=== PATIENT | male | born 1980 | race Caucasian/White ===

== ENCOUNTER 2022-01-26 12:27 | Emergency (ER) | payer BC, SELFPAY ==
[2022-01-26 12:37] VITALS: BP 132/83; PULSE 77; RESP 18; TEMP 36.6; O2SAT 100
--- NOTE | 2022-01-26 12:48 | ED.URI ---
HPI - URI/Sore Throat General Chief Complaint: Upper Respiratory Infection Stated Complaint: Cough Time Seen by Provider: 01/26/22 12:48 Source: patient, RN notes reviewed and old records reviewed Mode of arrival: ambulatory Limitations: no limitations History of Present Illness HPI Narrative: 41-year-old male presents to the [facility] with complaints of a cough and body aches since last night. No treatment prior to arrival. Patient states that he had to call off of work. Related Data Home Medications Medication Instructions Recorded Confirmed trazodone 50 mg tablet 50 mg PO .hs 07/04/19 01/26/22 carbamazepine 300 mg 300 mg PO Q12H 07/05/19 01/26/22 capsule,extended release [id number] dextroamphetamine-amphetamine ER 5 20 mg PO DAILY 12/10/21 01/26/22 mg 24hr capsule,extend release (Adderall XR) sertraline 25 mg tablet 50 mg PO DAILY 12/10/21 01/26/22 Allergies Allergy/AdvReac Type Severity Reaction Status Date / Time Sulfa (Sulfonamide Allergy Intermediate Hives, Verified 01/26/22 12:52 Antibiotics) joint swelling Review of Systems Review of Systems: All systems reviewed & are unremarkable except as noted in HPI and below Constitutional: Constitutional: Reports no additional constitutional complaints Eyes: Eyes: Reports no additional eye complaints ENT: Reports system reviewed and no additional complaints, except as documented Cardiovascular: Cardiovascular: Reports no additional cardiovascular complaints, Denies chest pain and Denies dyspnea Respiratory: Respiratory: Reports as per HPI, Denies chest congestion, Reports cough and Denies dyspnea Gastrointestinal: Gastrointestinal: Reports no additional gastrointestinal complaints, Denies abdominal pain, Denies nausea and Denies vomiting Musculoskeletal: Musculoskeletal: Reports no additional musculoskeletal complaints Integumentary/Breasts: Skin/Breast: Reports system reviewed and no additional complaints, except as docu Neurologic: Reports system reviewed and no additional complaints, except as documented Psychiatric: Psychiatric: Reports no additional psychiatric complaints Allergic/Immunologic: Allergic/Immunologic: Reports no additional allergic/immunologic complaints [facility] Family History Family History Other Family history of Parkinson's disease Family history of malignant neoplasm Social History Social History Smoking status: Never smoker Second hand tobacco smoke exposure: Yes Alcohol intake: current Alcohol use details: occasional Substance use: never Lack of Transportation: No Lack of Food: Never True Current Housing: I Have Housing Concerned About Future Housing: No Difficulty Paying Gas/Electric Bills: No Difficulty Paying for Meds: No Currently Unemployed: No Education: High School Diploma/GED Difficulty w/ Childcare or Family Care: No Comments At the time of my signature, I reviewed and agree with the nursing past medical, surgical, social, and family history. There is no relevant family history pertinent to the patient complaint. Exam Const: General: cooperative, healthy appearing, comfortable, no acute distress, well developed, alert and well nourished Nutritional Appearance: well nourished Orientation/consciousness: patient oriented x3 Limitations: no limitations HENMT: Head: normal to inspection Ears: hearing grossly normal bilaterally and external ears normal Face/Nose/Sinus: Normal external nose present, Normal nares present, Normal nasal mucous membranes and turbinates present and normal facial exam Face and sinus: normal facial exam Mouth: Yes Normal oral and palatal mucosa present, Yes lip normal and Yes moist mucous membranes Throat: posterior oropharynx normal and uvula midline Eyes: General: appearance normal, both eyes and all related structures Alignment and
== END 2022-01-26 13:09 | disposition home or self-care (01) ==
PROVIDERS: Emergency Provider Nurse Practitioner; PCP Internal Medicine
DX: J06.9 Acute upper respiratory infection, unspecified (principal)
CPT/HCPCS: 99213; G0463

== ENCOUNTER 2022-03-14 14:54 | Emergency (ER) | payer BC, SELFPAY ==
--- NOTE | ~2022-03-14 | CT_ITS ---
EXAMINATION: CTA chest PE protocol DATE: 03/14/2022 17:45 INDICATION: Chest pain. Shortness of breath. TECHNIQUE: Computed tomography angiography (CTA) of the chest was performed with 100 mL Omnipaque-350 intravenous contrast timed to evaluate the pulmonary arteries. Coronal maximum intensity projection 3D-reconstructions were created by the technologist. Automated exposure control and iterative reconst ruction technique were employed. The dose-length product was 402.26 mGy-cm. COMPARISON: Chest CT 08/30/2015 FINDINGS: The lungs demonstrate mild dependent atelectasis. No pleural effusion. The heart size is no rmal. No pericardial effusion. There is no pulmonary embolus. There is a hemangioma in T3 vertebral b mady. IMPRESSION: 1. No pulmonary embolus. Reviewed, dictated and finalized at location A. RETE PIPE MACHINE OPERATOR IMPRESSION: 1. No pulmonary embolus.
--- NOTE | ~2022-03-14 | XR_ITS ---
EXAMINATION: XR chest 2V DATE: 03/14/2022 15:22 INDICATION: Chest pain. TECHNIQUE: Frontal and lateral views of the chest were obtained. COMPARISON: Chest 2 views 02/11/2017 FINDINGS: The chest demonstrates clear lungs without pneumonia, pleural effusion, or pneumothorax. Th e heart size is normal. IMPRESSION: 1. No acute cardiopulmonary disease. Reviewed, dictated and finalized at location A. K PULLER
--- NOTE | 2022-03-14 14:56 | ECG_ITS ---
Measurements Intervals [place] Rate: 68 P: 53 [place]: 186 QRS: 41 QRSD: 93 T: 34 QT: 344 QTc: 367 Interpretive Statements SINUS RHYTHM POSSIBLE LEFT ATRIAL ENLARGEMENT BASELINE ARTIFACT- V3-V5 BORDERLINE ECG NO PREVIOUS ECG AVAILABLE FOR COMPARISON Electronically Signed On 03-14-2022 19:21:51 SUPPLY CHAIN ASSISTANT by Deni Cheng D.O.
[2022-03-14 15:02] VITALS: BP 144/89; PULSE 68; RESP 16; TEMP 36.4; O2SAT 100
[2022-03-14 16:37] LABS: Basophils Absolute Auto 0.1 K/mm3 (0.0-0.1); Basophils Percent Auto 1.6 % (0.2-1.2); Eosinophils Absolute Auto 0.1 K/mm3 (0-0.3); Eosinophils Percent Auto 1.1 % (0-4.4); Hematocrit 43.6 % (42.0-52.0); Hemoglobin 14.7 g/dL (14.0-18.0); Immature Granulocyte Absolute 0.01 K/mm3 (0.00-0.031); Immature Granulocyte Percent A 0.2 % (0-0.5); Lymphocytes Absolute Auto 1.18 K/mm3 (0.9-3.2); Lymphocytes Percent Auto 26.9 % (18.3-44.2); Mean Corpuscular HGB Conc 33.7 g/dl (32-36); Mean Corpuscular Hemoglobin 29.5 pg (26-34); Mean Corpuscular Volume 87.4 fl (80-100); Mean Platelet Volume 8.6 fl (7.4-10.4); Monocytes Absolute Auto 0.4 K/mm3 (0.1-0.6); Monocytes Percent Auto 8.4 % (2.6-8.5); Neutrophils Absolute Auto 2.7 K/mm3 (1.3-6.7); Neutrophils Percent Auto 61.8 % (45.5-73.1); Platelet Count Result 315 k/mm3 (150-375); Red Blood Count 4.99 M/mm3 (4.6-6.20); Red Cell Distribution Width 13.2 % (11.5-14.5); White Blood Count 4.4 K/mm3 (4.5-10.0)
[2022-03-14 16:47] LABS: Alanine Aminotransferase 22 U/L (6-50); Alkaline Phosphatase 85 U/L (38-126); Anion Gap 7 mmol/L (8-16); Aspartate Amino Transferase 28 U/L (17-59); Bilirubin,Total 0.5 mg/dL (0.2-1.3); Blood Urea Nitrogen 15 mg/dL (9-20); Calcium 9.1 mg/dL (8.4-10.2); Carbon Dioxide 28 mmol/L (22-30); Chloride 99 mmol/L (98-107); Estimated CRCL calculation 102 ml/min; Estimated Glomerular Filt Rate > 60; Glucose 86 mg/dL (65-110); INR 0.9; Lipase 214 U/L (23-300); Potassium 4.1 mmol/L (3.4-5.0); Prothrombin Time 12.2 Seconds (11.1-14.7); Sodium 134 mmol/L (137-145)
[2022-03-14 16:48] LABS: Partial Thromboplastin Time 27.4 SECONDS (22.3-36.8)
--- NOTE | 2022-03-14 16:54 | PC.NURSE ---
EKG and blood done @1500 and sent to lab at that time
[2022-03-14 16:59] LABS: Troponin I < 0.012 ng/mL (0.000-0.034)
[2022-03-14] MEDS: ASPIRIN 81 MG CHEWABLE TABLET 324 MG PO (17:06)
[2022-03-14] MEDS: NITROGLYCERIN SL 0.4 MG TABLET SUBLINGUAL (17:19)
--- NOTE | 2022-03-14 17:19 | ED.CHESTPAIN ---
HPI - Chest Pain General Chief Complaint: Chest Pain Stated Complaint: Chest Pain Time Seen by Provider: 03/14/22 16:56 History of Present Illness HPI narrative: 41-year-old male presenting to the emergency department for evaluation of chest pain that has been ongoing for the last few days. Patient reported to nursing it is worsened with a deep breath. Patient does have a history of COVID and bronchitis from January 2022. Patient denies any history of MD. Patient has not had a stress test. Patient reports he has had a prior history of pericarditis but states this feels differently. Patient denies any prior history of PE or DVT. Related Data Home Medications Medication Instructions Recorded Confirmed trazodone 50 mg tablet 50 mg PO .hs 07/04/19 02/06/22 carbamazepine 300 mg 300 mg PO Q12H 07/05/19 02/06/22 capsule,extended release [id number] dextroamphetamine-amphetamine ER 5 20 mg PO DAILY 12/10/21 02/06/22 mg 24hr capsule,extend release (Adderall XR) sertraline 25 mg tablet 50 mg PO DAILY 12/10/21 02/06/22 Allergies Allergy/AdvReac Type Severity Reaction Status Date / Time Sulfa (Sulfonamide Allergy Intermediate Hives, Verified 03/14/22 14:55 Antibiotics) joint swelling Review of Systems Review of Systems: CONSTITUTIONAL: Denies fever, chills, or sweats. EYES: Denies visual changes, redness, or discharge. ENT: Denies rhinorrhea, congestion, sore throat, or otalgia. CARDIOVASCULAR: See HPI RESPIRATORY: Denies cough or dyspnea. GASTROINTESTINAL: Denies abdominal pain, nausea, vomiting, or diarrhea. GENITOURINARY: Denies dysuria or hematuria. SKIN: Denies rash or itching. MUSCULOSKELETAL: Denies back pain, joint pain, or myalgia. NEUROLOGIC: Denies headache, numbness, or weakness. [facility] Family History Family History Other Family history of Parkinson's disease Family history of malignant neoplasm Social History Social History Smoking status: Never smoker Second hand tobacco smoke exposure: Yes Alcohol intake: current Alcohol use details: occasional Substance use: never Lack of Transportation: No Lack of Food: Never True Current Housing: I Have Housing Concerned About Future Housing: No Difficulty Paying Gas/Electric Bills: No Difficulty Paying for Meds: No Currently Unemployed: No Education: High School Diploma/GED Difficulty w/ Childcare or Family Care: No Exam Narrative: APPEARANCE: Well appearing, no pain, no distress, well-nourished. HEAD: normocephalic, atraumatic. EYES: PERRLA/EOMI, conjunctivae clear. NOSE: Normal no drainage NECK: Supple. No adenopathy, no masses. RESPIRATORY: Airway patent, respirations nonlabored. Clear to auscultation bilaterally, no rales, rhonchi, wheezing. CARDIOVASCULAR: Regular rate and rhythm without murmurs rubs or gallops. No reproducible chest wall tenderness to palpation ABDOMINAL: Soft, nontender, nondistended, normal bowel sounds MUSCULOSKELETAL: Moves all extremities. Strength/ROM intact, No edema, No calf tenderness. NEURO: Alert. Cranial nerves II through XII intact. Grossly intact SKIN: Warm, dry. Normal Color Course Course Emergency Course: Patient was treated with IV ketorolac. Patient had no improvement with his symptoms from sublingual nitro. Patient was treated with 324 mg p.o. aspirin. Patient was not tachycardic or hypoxic. Patient does describe pleuritic chest pain. Patient's EKG showed normal sinus rhythm. Patient's initial troponin was negative. With the way the patient is describing his pain and with his history of COVID CTA PE study will be ordered to rule out pulmonary embolism. CTA showed no evidence of pulm embolism. Patient had negative serial troponins. Vital Signs Vital signs: Vital Signs Temperature 97.5 F L 03/14/22 15:02 Pulse Rate 68 03/14/22 15:02 Respiratory R
[2022-03-14 18:39] LABS: Troponin I < 0.012 ng/mL (0.000-0.034)
--- NOTE | 2022-03-14 19:16 | PC.NURSE ---
Report received from DONALD Webster. Assumed care of patient at this time.
[2022-03-14 19:55] VITALS: BP 143/95; PULSE 68; RESP 16; O2SAT 100
[2022-03-14] MEDS: KETOROLAC 30 MG/ML VIAL (*BKC) IM (20:09)
== END 2022-03-14 20:13 | disposition home or self-care (01) ==
PROVIDERS: Emergency Provider Emergency Medicine; PCP Internal Medicine
DX: R07.9 Chest pain, unspecified (principal); Z86.16 Personal history of COVID-19; R94.31 Abnormal electrocardiogram [ECG] [EKG]
CPT/HCPCS: 36415; 71046; 71275; 80053; 83690; 84484; 85025; 85610; 85730; 93005; 96372; 99284; A9270; J1885; Q9967

== ENCOUNTER 2022-04-13 09:39 | Emergency (ER) | payer BC, SELFPAY ==
--- NOTE | ~2022-04-13 | XR_ITS ---
XR hand LT min 3V 04/13/2022 09:59 INDICATION: Left hand pain PROCEDURE: 3 views left hand COMPARISON: No prior studies for comparison. FINDINGS: Fracture, dislocation or subluxation is not identified. The soft tissues appear within norm al limits. No foreign bodies are identified. IMPRESSION: 1: NO ACUTE BONE OR JOINT ABNORMALITY IDENTIFIED. Reviewed, dictated and finalized at location B. TRUCTION IRONWORKER
--- NOTE | 2022-04-13 09:48 | ED.UPPEXIN ---
HPI - Extremity Injury (Upper) General Chief Complaint: Extremity Injury, Upper Stated Complaint: lt hand injury Time Seen by Provider: 04/13/22 09:48 Source: patient Mode of arrival: ambulatory Limitations: no limitations History of Present Illness HPI narrative: Mani is a 41-year-old male patient presenting to the clinic today with complaints of a left hand injury. He reports was moving some furniture around 8:00 a.m. this morning when he crushed his hand. States that 1 of the pieces of furniture crush his 3rd knuckle as well as he had a knife near by and it ended up cutting the top of his 3rd knuckle. Has pain to the left 3rd knuckle and radiating into his hand/wrist. Mild swelling noted with a a 1 cm laceration to the dorsal 3rd left knuckle Related Data Home Medications Medication Instructions Recorded Confirmed trazodone 50 mg tablet 50 mg PO .hs 07/04/19 02/06/22 carbamazepine 300 mg 300 mg PO Q12H 07/05/19 02/06/22 capsule,extended release [id number] dextroamphetamine-amphetamine ER 5 20 mg PO DAILY 12/10/21 02/06/22 mg 24hr capsule,extend release (Adderall XR) sertraline 25 mg tablet 50 mg PO DAILY 12/10/21 02/06/22 Allergies Allergy/AdvReac Type Severity Reaction Status Date / Time Sulfa (Sulfonamide Allergy Intermediate Hives, Verified 04/13/22 10:04 Antibiotics) joint swelling Review of Systems Review of Systems: Pertinent positives per HPI. Patient denies any fever, chills, rash, headache, visual changes, dizziness, cough, runny nose, sore throat, shortness of breath, chest pain, palpitations, nausea, vomiting, diarrhea, constipation, abdominal pain, or any urinary issues. [facility] Family History Family History Other Family history of Parkinson's disease Family history of malignant neoplasm Social History Social History Smoking status: Never smoker Second hand tobacco smoke exposure: Yes Alcohol intake: current Alcohol use details: occasional Substance use: never Lack of Transportation: No Lack of Food: Never True Current Housing: I Have Housing Concerned About Future Housing: No Difficulty Paying Gas/Electric Bills: No Difficulty Paying for Meds: No Currently Unemployed: No Education: High School Diploma/GED Difficulty w/ Childcare or Family Care: No Comments At the time of my signature, I reviewed and agree with the nursing past medical, surgical, social, and family history. There is no relevant family history pertinent to the patient complaint. Exam Narrative: General: Well-developed, well nourished, in no apparent distress Head: Normocephalic, atraumatic. Cardio: Regular rate and rhythm, s1 and s2 normal, no murmur appreciated. Resp: Clear to auscultation bilaterally, no rhonchi, rales, wheezing or rubs. Musculoskeletal: No deformity, mild swelling noted to the left 3rd knuckle with mild redness, 1 cm gaped laceration to the dorsal aspect of the left 3rd knuckle, tender to palpation over the left 3rd knuckle with pain radiating into the left hand, limited range of motion to the left 3rd finger due to the discomfort, muscle strength strong and equal, peripheral pulse strong, no cyanosis, normal gait and station Course Course Emergency Course: Portions of this record may have been created with voice recognition software. Level of Care: Express Care Visit Vital Signs Vital signs: Vital Signs Temperature 36.9 C 04/13/22 09:56 Pulse Rate 72 04/13/22 09:56 Respiratory Rate 18 04/13/22 09:56 Blood Pressure 133/98 H 04/13/22 09:56 Pulse Oximetry 100 04/13/22 09:56 Oxygen Delivery Room Air 04/13/22 09:56 Temperature 36.9 C 04/13/22 09:56 Pulse Rate 72 04/13/22 09:56 Respiratory Rate 18 04/13/22 09:56 Blood Pressure 133/98 H 04/13/22 09:56 Pulse Oximetry 100 04/13/22 09:56 Oxygen Deli
[2022-04-13 09:56] VITALS: BP 133/98; PULSE 72; RESP 18; TEMP 36.9; O2SAT 100
== END 2022-04-13 10:56 | disposition home or self-care (01) ==
PROVIDERS: Emergency Provider Nurse Practitioner Family; PCP Internal Medicine
DX: S61.213A Laceration without foreign body of left middle finger without damage to nail, initial encounter (principal); S69.92XA Unspecified injury of left wrist, hand and finger(s), initial encounter; W22.8XXA Striking against or struck by other objects, initial encounter
CPT/HCPCS: 12001; 73130; 99213; G0463

== ENCOUNTER 2022-05-09 17:53 | Emergency (ER) | payer BC, SELFPAY ==
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
[2022-05-09 18:08] VITALS: BP 145/95; PULSE 88; RESP 16; TEMP 37.3; O2SAT 100
--- NOTE | 2022-05-09 18:39 | ED.GENADULT ---
HPI - General Adult General Chief complaint: Extremity Injury, Upper Stated complaint: left hand pain Time Seen by Provider: 05/09/22 17:54 History of Present Illness HPI narrative: 41-year-old male with a history of hyperlipidemia reports for evaluation of left third MCP pain for 1 day. Patient states 1 month ago he injured his left third MCP when he accidentally closed the car trunk on his hand. Patient states he went to an urgent care at that time, x-rays negative, stitches placed for 1 cm laceration over MCP, and was told to follow-up. States since this injury, patient has been able to fully extend his third digit. Reports yesterday he was making his son Nathaniel payan when he went to flick Nathaniel nojeremyles off of his hand using his left third finger. Patient reports he felt and heard a pop in his third MCP and experienced excruciating pain. He reports ecchymosis, edema and pain today. States he took Tylenol 8 hours ago. Related Data Home Medications Medication Instructions Recorded Confirmed trazodone 50 mg tablet 50 mg PO .hs 07/04/19 04/13/22 carbamazepine 300 mg 300 mg PO Q12H 07/05/19 04/13/22 capsule,extended release [id number] dextroamphetamine-amphetamine ER 5 20 mg PO DAILY 12/10/21 04/13/22 mg 24hr capsule,extend release (Adderall XR) sertraline 25 mg tablet 50 mg PO DAILY 12/10/21 04/13/22 Allergies Allergy/AdvReac Type Severity Reaction Status Date / Time Sulfa (Sulfonamide Allergy Intermediate Hives, Verified 05/09/22 17:54 Antibiotics) joint swelling Review of Systems Review of Systems: CONSTITUTIONAL: Denies fever, chills EYES: Denies visual changes, redness, or discharge. ENT: Denies rhinorrhea, congestion, sore throat, or otalgia. CARDIOVASCULAR: Denies chest pain, palpitations, or edema. RESPIRATORY: Denies cough or dyspnea. GASTROINTESTINAL: Denies abdominal pain, nausea, vomiting, or diarrhea. GENITOURINARY: Denies dysuria or hematuria. SKIN: Denies rash or itching. MUSCULOSKELETAL: See HPI NEUROLOGIC: Denies headache, numbness, dizziness, or weakness. PSYCHIATRIC: Denies anxiety or depression. [facility] Family History Family History Other Family history of Parkinson's disease Family history of malignant neoplasm Social History Social History Smoking status: Never smoker Second hand tobacco smoke exposure: Yes Alcohol intake: current Alcohol use details: occasional Substance use: never Lack of Transportation: No Lack of Food: Never True Current Housing: I Have Housing Concerned About Future Housing: No Difficulty Paying Gas/Electric Bills: No Difficulty Paying for Meds: No Currently Unemployed: No Education: High School Diploma/GED Difficulty w/ Childcare or Family Care: No Exam Narrative: GENERAL: Well-appearing, well-nourished, and in no acute distress. Patient resting comfortably in the exam chair. He is pleasant and conversational HEAD: Normocephalic, atraumatic. EYES: PERRLA and EOMI. NECK: Supple. No adenopathy or masses. No carotid bruits or JVD CHEST: Clear to auscultation. No respiratory distress. No wheezes rales or rhonchi HEART: Regular rate and rhythm. No murmur heard. Normal peripheral pulses. EXTREMITIES: LUE: Ecchymosis, edema and tenderness overlying the dorsal aspect of the left third MCP and distal 3rd metacarpal with a well-healed 1 cm scar over the MCP. Full flexion of left finger, limited passive and active extension. Cap refill <2. Sensation intact to distal 3rd finger. Radial pulse 2+. No tenderness to the remaining digits, metacarpals, and wrist. SKIN: Warm, dry, no rash. NEURO: No focal deficits. Alert and oriented x3. PSYCH: Normal mood and affect. Course Vital Signs Vital signs: Vital Signs Temperature 99.2 F 05/09/22 18:08 Pulse Rate 88 05/09/22 18:08 Respiratory Rate 16 05/09/22
[2022-05-09] MEDS: ONDANSETRON HCL ODT 4 MG TABLET PO (18:57)
[2022-05-09] MEDS: IBUPROFEN 600 MG TABLET PO (18:58)
== END 2022-05-09 20:06 | disposition home or self-care (01) ==
PROVIDERS: Emergency Provider Physician Assistant; PCP Internal Medicine
DX: M79.642 Pain in left hand (principal); W23.2XXA Caught, crushed, jammed or pinched between a moving and stationary object, initial encounter; E78.5 Hyperlipidemia, unspecified
CPT/HCPCS: 73130; 99283; A9270

== ENCOUNTER 2022-05-14 00:48 | Day surgery (SDC) | payer BC, SELFPAY ==
[2022-05-12 15:00] VITALS: BMI 25.7
--- NOTE | 2022-05-12 15:04 | PC.NURSE ---
Report to the Outpatient Waiting Room, entrance under the green pavilion located off [facility], at time 1330 on date 05/14/22. Planned Procedure Time: 1430. Time changes happen often and if your time is changed the preop area will call you the afternoon before. - You and your visitor will be asked to self-screen and do not enter if you have any COVID symptoms. - Only one visitor is requested with a max of two and NO children visitors are allowed at this time. - The patient visitor may be requested to leave or wait in car when not with patient due to distancing restrictions. - A mask is optional within the hospital at this time. Patients may have LIGHT MEAL Take the following medications with a SIP of water the morning of surgery: PRESCRIBED DO NOT STOP ANY OF YOUR OTHER PRESCRIPTION MEDICATIONS PRIOR TO SURGERY EXCEPT THE FOLLOWING Medications to discontinue per physician: N/A Date to take last dose: N/A Please no make-up, nail algerian, hairspray, perfume, deodorant, or body powder the day of surgery. No jewelry (including any body piercings) or valuables the day of surgery, leave them at home. Please take a shower or bath the night before, or the morning of, surgery with an antibacterial soap. Wear comfortable, loose fitting clothing. - Jewelry must be removed prior to entering the operating room. Rings and piercings that are not removed may be cut off. - The hospital will not accept responsibility for valuables. - Please leave all valuables, including medications, at home the day of surgery. YOU MAY DRIVE YOURSELF HOME FROM THE HOSPITAL. Follow any additional instructions given to you from your surgeon. If you or anyone in your household have experienced Covid symptoms in the past week, please notify your surgeon or the nurse liaison at the phone number below for possible testing. Telephone instructions given to PT Kamille DALTON and asked if any additional questions and then verbalized understanding. Patient advised to call surgeon office or pre surgery nurse liaison [phone] if any additional questions.
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
[2022-05-14] VITALS (9 sets, daily range): BP systolic 129–148; BP diastolic 83–91; PULSE 66–86; RESP 15–16; TEMP 36.8; O2SAT 99–100
--- NOTE | 2022-05-14 07:19 | WPDHPUPDATE1 ---
History and Physical Update Update Date/Time: 05/14/22 07:19 History and Physical has been reviewed, including an updated exam of the patient. There are NO changes in the patient's condition. Risks, benefits, and alternatives have been discussed and questions answered. Patient agrees to proceed with procedure.
[2022-05-14] MEDS: LIDO 1%/EPINEPHRINE 1:100,000 50 ML VIAL 25 ML INFILTRATE (15:15)
[2022-05-14] MEDS: BACITRACIN OINTMENT 15 GM TUBE 1 APPLIC TOPICAL (15:16)
--- NOTE | 2022-05-14 15:40 | W.PM.PROC2 ---
Procedure Note - Detailed Date of Procedure 05/14/22 Pre-op Diagnosis laceration extensor tendon left middle finger Post-op Diagnosis Same Procedure Performed Delayed repair extensor communis tendon left middle finger zone 5 Surgeon Enrique Boucher MD Quality Assurance Coordinator Kishore Anesthesia Local Description of Procedure The left dorsal hand was marked over the middle finger on the patient in the holding area with his consent. He was taken to the operating room where he was placed supine on the operating table. The extremity was prepped and draped in usual fashion. Time-out was held and confirmed. The site was marked for the incision and locally infiltrated with 1% lidocaine with epinephrine. A wide area of adequate anesthesia was obtained. The transverse incision was made through the scar. Skin flaps were elevated and the distal end of the extensor tendon was found to be neatly cut. The proximal diagonal skin incision was made to expose the proximal end of the tendon which lay within about a cm and a half. The loose areolar tissue around these was stripped the tendons easily opposed. A 4 strand repair was done with 3-0 Ethibond. A satisfactory repair was achieved. The skin was closed with a running 5 0 nylon suture. A small dorsal bandage was applied and a long 1 in wide aluminum splint extending to the forearm from the tip of the finger was shaped and applied with Coban Estimated Blood Loss 5 Tourniquet Time 0 Drains No Packing No Pathology None sent Complications No immediate complications Condition Stable Disposition Same day
== END 2022-05-14 15:46 | disposition home or self-care (01) ==
PROVIDERS: PCP Internal Medicine; Visit Provider Plastic Surgery
PROC: (CPT 26418; principal; 2022-05-14 14:30)
DX: S66.323A Laceration of extensor muscle, fascia and tendon of left middle finger at wrist and hand level, initial encounter (principal); W20.8XXA Other cause of strike by thrown, projected or falling object, initial encounter; F12.90 Cannabis use, unspecified, uncomplicated
CPT/HCPCS: 26418; A9270

== ENCOUNTER 2022-08-07 14:00 | Outpatient (RCR) | payer BC, SELFPAY ==
--- NOTE | 2022-06-05 09:21 | OTOPEVAL1 ---
Assessment and note entered by Antoine Mead, JOEL/Erica, CHT Evaluation Information Assessment Status Evaluation Diagnosis Laceration of EDC to 3rd digit, zone V Subjective Information Surgical repair 05/14/22. Injury occurred a month prior. Patient shut a trunk on the dorsum of his hand. 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 Has been immobilized in full extension since his surgery. Removes the aluminum splint to shower and takes care not to bend the finger. Reported Pain Level Pain Score 0: Self Report Additional Pain Score Comments Report 7/10 pain with a few of the ROM exercises. Reporting tightness along the dorsum of the hand extending into the finger. Assessment OT Clinical Summary Patient referred to outpatient hand therapy 3 weeks following delayed repair of left middle finger EDC zone V. Today active ROM exercises and scar mobilization was initiated. He completes with excellent understanding. Plan to have the patient to continue to follow up for progression of HEP, use of modalities on the scar, and manual therapy to facilitate optimal functional ROM and strength of the left hand. Plan of Care Interventions Therapeutic Exercise,Manual Therapy,Therapeutic Activities,Hot Pack/Cold Pack,Ultrasound,Paraffin OT Services Indicated Yes Treatment Frequency and 1x/week for 3 weeks Duration These treatments will address the objective and functional deficits as defined above. The patient will be advanced safely and appropriately in order for the patient to progress towards his/her prior level of function. Additional exercises will be introduced and as well as a comprehensive home exercise program upon discharge, if needed, ?to ensure carryover of functional gains achieved in the clinic. This treatment plan has been reviewed and agreement upon by the patient.
--- NOTE | 2022-06-25 15:56 | OTOPPROG ---
Assessment and note entered by Antoine Mead, JOEL/Erica, CHT Evaluation Information Assessment Status Progress Diagnosis Laceration of EDC to 3rd digit, zone V Subjective Information Surgical repair 05/14/22. Injury occurred a month prior. Patient shut a trunk on the dorsum of his hand. He has been participating in therapy x3 weeks. We have weaned out of the splint. He is using his using his hand for light task and continues to be careful with heavy lifting/ gripping. Functionally he is ready to return to work. He understands he is to continue to use good body mechanics to reduce repetitive gripping/over straining the area. Assessment OT Clinical Summary Patient referred to outpatient hand therapy following delayed repair of left middle finger EDC zone V. The patient has been working on ROM and scar mobilization with good results. Functional flexion of the MCP joint has been measuring 75/80 degrees for 1 week. 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 He is doing well overall, just some residual stiffness. He will benefit from a few more follow up sessions to progress his HEP. Plan of Care Interventions Therapeutic Exercise,Manual Therapy,Therapeutic Activities,Hot Pack/Cold Pack,Ultrasound,Paraffin OT Services Indicated Yes Treatment Frequency and 0-1x/week for 3 weeks Duration These treatments will address the objective and functional deficits as defined above. The patient will be advanced safely and appropriately in order for the patient to progress towards his/her prior level of function. Additional exercises will be introduced and as well as a comprehensive home exercise program upon discharge, if needed, ?to ensure carryover of functional gains achieved in the clinic. This treatment plan has been reviewed and agreement upon by the patient.
--- NOTE | 2022-07-07 15:35 | PCOTNOTE ---
Patient did not show up for scheduled appointment this date. Called patient and left voicemail reminding him of his next appointment.
--- NOTE | 2022-07-21 07:22 | BUOTOPEVAL ---
Assessment and note entered by Antoine Mead, JOEL/Erica, CHT Evaluation Information Assessment Status Progress Diagnosis Laceration of EDC to 3rd digit, zone V Subjective Information Surgical repair 05/14/22. Injury occurred a month prior. Patient shut a trunk on the dorsum of his hand. He is 10 weeks post repair. He states that functionally he is able to use his hand without limitations. He is reporting intense burning pain on the scar site when he bumps it and with a composite fist. Reports it feels like the scar tissue is trying to pull apart. No pain at rest. Patient's ROM has returned to normal limits. His biggest limitation is the scar adhesions causing stiffness and hypersensitivity to the dorsum of the hand. We are using paraffin, ultrasound, and soft tissue mobilization techniques to help reduce the adhesions and scar tissue build up. Reported Pain Level Additional Pain Score Comments No pain at rest. 3-4/10 with gross fist, reporting burning sensation. 10/10 with bumping the dorsum of the hand. Assessment OT Clinical Summary Patient referred to outpatient hand therapy following delayed repair of left middle finger EDC zone V. The patient has been working on ROM, strengthening, and scar mobilization. He continues to have hypersensitivity on the dorsum of the hand with palpation and with ROM, specifically full fist and hook fists. He will benefit from a few more follow up sessions to utilize modalities and manual therapy for scar tissue management. Plan of Care Interventions Therapeutic Exercise,Manual Therapy,Therapeutic Activities,Hot Pack/Cold Pack,Ultrasound,Paraffin OT Services Indicated Yes Treatment Frequency and 1x/week for 3 weeks Duration These treatments will address the objective and functional deficits as defined above. The patient will be advanced safely and appropriately in order for the patient to progress towards his/her prior level of function. Additional exercises will be introduced and as well as a comprehensive home exercise program upon discharge, if needed, ?to ensure carryover of functional gains achieved in the clinic. This treatment plan has been reviewed and agreement upon by the patient.
--- NOTE | 2022-08-07 14:29 | OTOPDC ---
Assessment and note entered by Antoine Mead, JOEL/Erica, CHT Evaluation Information Assessment Status Discharge Diagnosis Laceration of EDC to 3rd digit, zone V Subjective Information Surgical repair 05/14/22. Injury occurred a month prior. Patient shut a trunk on the dorsum of his hand. He is 10 weeks post repair. He states that functionally he is able to use his hand without limitations. He is reporting intense burning pain on the scar site when he bumps it and with a composite fist. Reports it feels like the scar tissue is trying to pull apart. No pain at rest. Patient's ROM has returned to normal limits. 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 His biggest limitation is the scar adhesions causing stiffness and hypersensitivity to the dorsum of the hand. Reported Pain Level Pain Score 6: Self Report Additional Pain Score Comments 6/10 with composite finger flexion Assessment OT Clinical Summary Patient referred to outpatient hand therapy following delayed repair of left middle finger EDC zone V. The patient has been working on ROM, strengthening, and scar mobilization. He continues to have hypersensitivity on the dorsum of the hand with palpation and with ROM, specifically full fist and hook fists. We are unfortunately reaching a plateau with therapy - he continues to have burning pain when making a composite fist. Plan for him to continue his home program independently. Patient to give his healing more time and to reduce constant irritation to the scar /dorsum of the hand by keeping the hand padded when at work in hopes that more time/healing will work the pain out. Recommend that he follows up with MD for future needs. D/C OT. Plan of Care OT Services Indicated No
== END 2022-08-07 16:07 | disposition home or self-care (01) ==
LOC: ANHOT 14:00
PROVIDERS: PCP Internal Medicine; Visit Provider Plastic Surgery
DX: Z48.89 Encounter for other specified surgical aftercare (principal)
CPT/HCPCS: 97018; 97039; 97110; 97140; 97165; 99199

== ENCOUNTER 2023-04-14 08:06 | Emergency (ER) | payer BC, SELFPAY ==
[2023-04-14] VITALS (25 sets, daily range): BP systolic 118–144; BP diastolic 78–100; PULSE 61–80; RESP 9–27; TEMP 36.5; O2SAT 95–100
--- NOTE | ~2023-04-14 | XR_ITS ---
EXAMINATION: XR chest 2V DATE: 04/14/2023 09:06 INDICATION: Shortness of breath, cough and fatigue TECHNIQUE: PA and lateral views of the chest were obtained. COMPARISON: Chest radiograph dated 03/14/2022 FINDINGS: The lungs remain clear with no focal airspace opacities, pulmonary edema, pleural effusion or pneumot horax. The cardiomediastinal silhouette is normal. Mild upper thoracic levocurvature with mild spondy losis IMPRESSION: 1. No acute cardiopulmonary disease. Reviewed, dictated and finalized at location B. TS EDITOR
--- NOTE | 2023-04-14 08:15 | ECG_ITS ---
Measurements Intervals [place] Rate: 74 P: 53 OK: 185 QRS: 41 QRSD: 96 T: 42 QT: 341 QTc: 380 Interpretive Statements SINUS RHYTHM COMPARED TO ECG 03/14/2022 14:59:50 NO SIGNIFICANT CHANGES Electronically Signed On 04-14-2023 16:35:44 COMPUGRAPH OPERATOR by Hilda Mayen M.D.
[2023-04-14 08:32] LABS: Basophils Absolute Auto 0.1 K/mm3 (0.0-0.1); Basophils Percent Auto 1.2 % (0.2-1.2); Eosinophils Absolute Auto 0.1 K/mm3 (0-0.3); Eosinophils Percent Auto 1.2 % (0-4.4); Hematocrit 44.5 % (42.0-52.0); Hemoglobin 14.9 g/dL (14.0-18.0); Immature Granulocyte Absolute 0.01 K/mm3 (0.00-0.031); Immature Granulocyte Percent A 0.2 % (0-0.5); Lymphocytes Absolute Auto 1.48 K/mm3 (0.9-3.2); Mean Corpuscular HGB Conc 33.5 g/dl (32-36); Mean Corpuscular Hemoglobin 29.1 pg (26-34); Mean Corpuscular Volume 86.9 fl (80-100); Mean Platelet Volume 8.3 fl (7.4-10.4); Monocytes Absolute Auto 0.4 K/mm3 (0.1-0.6); Monocytes Percent Auto 9.2 % (2.6-8.5); Neutrophils Absolute Auto 2.1 K/mm3 (1.3-6.7); Neutrophils Percent Auto 52.2 % (45.5-73.1); Platelet Count Result 266 k/mm3 (150-375); Red Blood Count 5.12 M/mm3 (4.6-6.20); Red Cell Distribution Width 12.7 % (11.5-14.5); White Blood Count 4.1 K/mm3 (4.5-10.0)
[2023-04-14 08:41] LABS: Alanine Aminotransferase 28 U/L (6-50); Albumin Level 4.6 g/dL (3.5-5.1); Alkaline Phosphatase 86 U/L (38-126); Anion Gap 6 mmol/L (8-16); Aspartate Amino Transferase 27 U/L (17-59); Bilirubin,Total 0.5 mg/dL (0.2-1.3); Blood Urea Nitrogen 20 mg/dL (9-20); Calcium 9.5 mg/dL (8.4-10.2); Carbon Dioxide 28 mmol/L (22-30); Chloride 105 mmol/L (98-107); Estimated CRCL calculation 91 ml/min; Estimated Glomerular Filt Rate > 60; Glucose 80 mg/dL (65-110); Potassium 4.3 mmol/L (3.4-5.0); Sodium 139 mmol/L (137-145)
[2023-04-14] MEDS: IPRATROPIUM 0.5 MG/ALBUTEROL SULFATE 2.5 MG AMPUL.NEB 3 ML INHALATION (08:52)
[2023-04-14] MEDS: ALBUTEROL SULFATE NEB 2.5 MG/3 ML INH INHALATION (10:32)
--- NOTE | 2023-04-14 10:47 | ED.SOB ---
HPI - SOB/Dyspnea General Chief Complaint: Shortness of Breath/Dyspnea Stated Complaint: TROUBLE BREATHING Time Seen by Provider: 04/14/23 08:11 History of Present Illness HPI Narrative: Patient is a 42-year-old male who presents ER with shortness of breath. Patient reports history of bronchitis. He has a combination of the albuterol/ budesonide inhaler and uses with minimal improvement. No chest pain chest pressure. No fevers chills sweats. He does have a cough. no exertional chest discomfort. No known sick contacts. Related Data Home Medications Medication Instructions Recorded Confirmed albuterol 90 mcg-budesonide 80 inh inhalation 04/14/23 mcg/actuation HFA aerosol inhaler (Airsupra) carbamazepine 300 mg mg PO 04/14/23 04/14/23 capsule,extended release [id number] dextroamphetamine-amphetamine 10 04/14/23 mg tablet dextroamphetamine-amphetamine ER PO 04/14/23 20 mg 24hr capsule,extend release sumatriptan succinate 100 mg tablet mg PO 04/14/23 trazodone 100 mg tablet mg 04/14/23 Allergies Allergy/AdvReac Type Severity Reaction Status Date / Time Sulfa (Sulfonamide Allergy Intermediate Hives, Verified 04/14/23 08:20 Antibiotics) joint swelling Review of Systems Review of Systems: All systems reviewed & are unremarkable except as noted in HPI and below Constitutional: Constitutional: Reports no additional constitutional complaints ENT: Reports system reviewed and no additional complaints, except as documented Cardiovascular: Cardiovascular: Reports no additional cardiovascular complaints Respiratory: Respiratory: Reports cough, Denies dyspnea and Denies wheezing Gastrointestinal: Gastrointestinal: Reports no additional gastrointestinal complaints [facility] Past Medical History Medical History (Updated 04/14/23 @ 17:21 by Jose Antonio Prince MD) Anxiety disorder, unspecified Bipolar 1 disorder Depression Gastro-esophageal reflux disease without esophagitis Hyperlipidemia Insomnia, unspecified Low testosterone Pilomatrixoma of left upper extremity Pure hypercholesterolemia Family History Family History Other Family history of Parkinson's disease Family history of malignant neoplasm Social History Social History Smoking status: Never smoker Second hand tobacco smoke exposure: Yes Alcohol intake: current Drinks per week: 12 Alcohol use details: occasional Substance use: current Substance use type: marijuana Lack of Transportation: No Lack of Food: Never True Current Housing: I Have Housing Concerned About Future Housing: No Difficulty Paying Gas/Electric Bills: No Difficulty Paying for Meds: No Currently Unemployed: No Education: High School Diploma/GED Difficulty w/ Childcare or Family Care: No Living arrangements: with family Spiritual care concerns: No Exam Narrative: GENERAL: Well-appearing, well-nourished, and in no acute distress. HEAD: Normocephalic, atraumatic. ENT: Mucous membranes moist. NECK: Supple. CHEST: Faint wheezing with occasional cough. No respiratory distress. HEART: Regular rate and rhythm. Normal peripheral pulses. ABDOMEN: Soft, nontender, nondistended. EXTREMITIES: Normal range of motion. No edema. SKIN: Warm, dry, no rash. NEURO: Alert and oriented x3. PSYCH: Normal mood and affect. Course Course Emergency Course: patient resting comfortably. Feels improved with nebulizer treatment. Discharge with rescue inhaler as well as oral steroids. Vital Signs Vital signs: Vital Signs Pulse Rate 80 04/14/23 08:13 Respiratory Rate 15 04/14/23 08:13 Blood Pressure 142/100 H 04/14/23 08:13 Pulse Oximetry 100 04/14/23 08:13 Temperature 97.7 F 04/14/23 08:14 Pulse Rate 68 04/14/23 10:56 Respiratory Rate 24 H 04/14/23 10:56 Blood Pressure 120/78 04/14/23
== END 2023-04-14 10:58 | disposition home or self-care (01) ==
PROVIDERS: Emergency Provider Emergency Medicine; PCP Internal Medicine
DX: J40 Bronchitis, not specified as acute or chronic (principal); E78.00 Pure hypercholesterolemia, unspecified; K21.9 Gastro-esophageal reflux disease without esophagitis; F41.9 Anxiety disorder, unspecified; F31.9 Bipolar disorder, unspecified; Z77.22 Contact with and (suspected) exposure to environmental tobacco smoke (acute) (chronic)
CPT/HCPCS: 36415; 71046; 80053; 85025; 93005; 94640; 99284

== ENCOUNTER 2024-01-28 15:23 | Outpatient (CLI) | payer BC, SELFPAY ==
--- NOTE | ~2024-01-28 | XR_ITS ---
EXAMINATION: XR chest 2V 01/28/2024 15:41 INDICATION: Shortness of breath and weakness PROCEDURE: 2 view chest COMPARISON: Comparison to multiple prior studies sequentially, with oldest reviewed study dated 08/29. FINDINGS: The lungs are clear. The cardiomediastinal silhouette is within normal limits. There are no pleural effusions. There is no pneumothorax suspected. IMPRESSION: 1: NO ACUTE CARDIOPULMONARY DISEASE. Reviewed, dictated and finalized at location B. CIPAL INVESTIGATOR
--- OUTSIDE RECORDS SUMMARY | 2024-02-01 01:35 | XMS_ITS ---
Author Organization [facility] Address [address] [address] Care Team Providers Care Commercial Kitchen Service Technician Name Role Phone Nando Galicia Unavailable [phone] REASON FOR VISIT medication Medications Medication SIG (Take, Route, Frequency, Duration) Notes Start Date End Date Status Amphetamine-Dextroamphet ER 20 MG 1 capsule every morning Oral Once a day for 30 days 12/27/2023 Active Amphetamine-Dextroamphetam ine 10 MG 1 tablet Oral once a day for 30 days 12/27/2023 Active Social History Sex Assigned At : Social History Observation Description Sex Assigned At Male Encounters Encounter Location Date Provider Diagnosis [facility] [address] [facility] [address] [address] 12/27/2023 Nandoarin Cliffordoza Attention-deficit hyperactivity disorder, combined type F90.2 Assessments Encounter Date Diagnosis (ICD Code) Assessment Notes Treatment Notes Treatment Clinical Notes Section Notes 12/27/2023 Attention-deficit hyperactivity disorder, combined type (ICD-10 - F90.2) Plan Of Treatment Medication Medication Name Sig Start Date Stop Date Notes Amphetamine-Dextroamphet ER 20 MG 1 capsule every morning Oral Once a day for 30 days 12/27/2023 Amphetamine-Dextroamphetamin e 10 MG 1 tablet Oral once a day for 30 days 12/27/2023 Progress Notes * KIANNA DALTONDOB: [birth year] (43 yo M)Acc No.[id number]:12/27/2023 Patient:?SHAKIANNA :1980???Age:43 Y???Sex:Male Address:[facility] [address], [place], [address] * Refills? Refill Amphetamine-Dextroamphet ER Capsule Extended Release 24 Hour, 20 MG, Oral, 30, 1 capsule every morning, Once a day, 30 days, Refills=0 Refill Amphetamine-Dextroamphetamine Tablet, 10 MG, Oral, 30, 1 tablet, once a day, 30 days, Refills=0 Subjective: * Chief Complaints: * ???Medication * Medical History:? * Surgical History:? * Hospitalization/Major Diagno stic Procedure:? * Medications:? Objective: * Vitals:? * Physical Examination:? Assessment: * Assessment: 1.?Attention-deficit hyperac tivity disorder, combined type - F90.2??? Plan: * Treatment: * Procedure Codes:?ERX CONTROL LED SUBSTANCE ERX * true * Date:? Generated for Alicia rutledge/Clay/eTransmitting on:?02/01/2024 01:35 AM EGGS INSPECTOR
--- OUTSIDE RECORDS SUMMARY | 2024-02-01 01:36 | XMS_ITS ---
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 Name Role Phone Nando Galicia Unavailable [phone] Allergies Allergen (clinical drug ingredient) Drug/Non Drug Allergy documented on EMR Reaction Allergy Type Onset Date Status Substance with sulfonamide structure and antibacterial mechanism of action (substance) SULFA (SULFONAMIDE ANTIBIOTICS) (uncoded) Unknown Allergy 04/24/2022 Active Results Component Value Reference Range Notes UDT Reviewed date:11/10/2023 01:47:48 PM Interpretation: Performing Lab: Notes/Report: THC POS 0 - 50 ng/ml Cocaine NEG 0 - 300 ng/ml Amphetamine NEG 0 - 1000 ng/ml Buprenorphine (BUP) NEG 0 - 10 ng/ml Secobarbital (Bar) NEG 0 - 300 ng/ml Oxazepam (BZO) NEG 0 - 300 ng/ml 3-eklrvmpwwr-9,1-myevieoz-7,3-diphenylpyrrolidine (СЕРГЕЙ P) NEG 0 - 300 ng/ml Methamphetamine (MET) NEG 0 - 1000 ng/ml Methylenedioxymethamphetamine (MDMA) NEG 0 - 500 ng/ml Morphine (MOP 300/[id number]) NEG 0 - 300 ng/ml Methadone (MTD) NEG 0 - 300 ng/ml Phencyclidine (PCP) NEG 0 - 25 ng/ml Propoxyphene (PPX) NEG 0 - 300 ng/ml Nortriptyline (TCA) NEG 0 - 1000 ng/ml Oxycodone NEG 0 - 300 ng/ml REASON FOR VISIT follow up visit, medication evaluation Medications Medication SIG (Take, Route, Frequency, Duration) Notes Start Date End Date Status carBAMazepine ER 300 MG 3 capsules Orall y daily for 90 days Active traZODone HCl 100 MG 1 tablet Oral Once a day for 90 days 11/10/2022 Active Amphetamine-Dextroamphetamin e 10 MG 1 tablet Oral once a day for 30 days 11/10/2023 Active Amphetamine-Dextroamphet ER 20 MG 1 capsule every morning Oral Once a day for 30 days 11/10/2023 Active SUMAtriptan Succinate 100 MG Oral 11/10/2022 Active ProAir HFA 108 (90 Base) MCG/ACT Inhalation 11/10/2022 Active Social History Tobacco Use: Social History Observation Description Date Details (start date - stop date) Never Smoker NA - NA Sex Assigned At : Social History Observation Description Sex Assigned At Male Tobacco Control (Standard) Question Answer Notes Tobacco use: Nonsmoker Vital Signs Blood pressure systolic 118 mm Hg 11/10/19 24 Blood pressure diastolic 84 mm Hg 024 Heart Rate 60 /min 11/10/2023 Weight 195.4 lbs 11/10/2023 Weight-kg 88.63 kg 11/10/2023 Height 72.00 in 11/10/2023 Height-cm 182.88 cm 11/10/2023 BMI 26.5 kg/m2 11/10/2023 Encounters Encounter Location Date Provider Diagnosis [facility] [address] [address] 11/10/2023 Nando Galicia Attention-deficit hyperactivity disorder, combined type F90.2 ; Other insomnia G47.09 ; Generalized anxiety disorder F41.1 and Bipolar disorder, current episode mixed, unspecified F31.60 Assessments Encounter Date Diagnosis (ICD Code) Assessment Notes Treatment Notes Treatment Clinical Notes Section Notes 11/10/2023 Attention-deficit hyperactivity disorder, combined type (ICD-10 - F90.2) 1. ADHD: - Patient reports being off Adderall for weeks and experiencing difficulty concentrating and fatigue in the afternoon. Plan: - Restart Adderall ER 20mg in the morning and Adderall IR 10mg in the afternoon. - Monitor patient's response to medication and consider alternative treatments, such as Daytrana patch, if needed. 2. Insomnia: - Patient reports improved sleep with Trazodone but experiences grogginess with two pills. Plan: - Continue Trazodone 100mg at bedtime for sleep. - Monitor patient's sleep quality and adjust dosage if necessary. 3. Anxiety: - Patient reports not taking Sertraline and only using Carbamazepine and Trazodone. Plan: - Reevaluate the need for Sertraline in the future if anxiety symptoms worsen. 4. Bipolar Disorder: - Patient is currently taking Carbamazepine ER (one in the morning and two in the evening) and reports some forgetfulness with words. Plan: - Continue Carbamazepine ER for bipolar disorder management. - Monitor patient's cognitive function and consider adjusting the dosage or medication if necessary. 11/10/2023 Other insomnia (ICD-10 - G47.09) 1. ADHD: - Patient reports being off Adderall for weeks and experiencing difficulty concentrating and fatigue in the afternoon. Plan: - Restart Adderall ER 20mg in the morning and Adderall IR 10mg in the afternoon. - Monitor patient's response to medication and consider alternative treatments, such as Daytrana patch, if needed. 2. Insomnia: - Patient reports improved sleep with Trazodone but experiences grogginess with two pills. Plan: - Continue Trazodone 100mg at bedtime for sleep. - Monitor patient's sleep quality and adjust dosage if necessary. 3. Anxiety: - Patient reports not taking Sertraline and only using Carbamazepine and Trazodone. Plan: - Reevaluate the need for Sertraline in the future if anxiety symptoms worsen. 4. Bipolar Disorder: - Patient is currently taking Carbamazepine ER (one in the morning and two in the evening) and reports some forgetfulness with words. Plan: - Continue Carbamazepine ER for bipolar disorder management. - Monitor patient's cognitive function and consider adjusting the dosage or medication if necessary. 11/10/2023 Generalized anxiety disorder (ICD-10 - F41.1) 1. ADHD: - Patient reports being off Adderall for weeks and experiencing difficulty concentrating and fatigue in the afternoon. Plan: - Restart Adderall ER 20mg in the morning and Adderall IR 10mg in the afternoon. - Monitor patient's response to medication and consider alternative treatments, such as Daytrana patch, if needed. 2. Insomnia: - Patient reports improved sleep with Trazodone but experiences grogginess with two pills. Plan: - Continue Trazodone 100mg at bedtime for sleep. - Monitor patient's sleep quality and adjust dosage if necessary. 3. Anxiety: - Patient reports not taking Sertraline and only using Carbamazepine and Trazodone. Plan: - Reevaluate the need for Sertraline in the future if anxiety symptoms worsen. 4. Bipolar Disorder: - Patient is currently taking Carbamazepine ER (one in the morning and two in the evening) and reports some forgetfulness with words. Plan: - Continue Carbamazepine ER for bipolar disorder management. - Monitor patient's cognitive function and consider adjusting the dosage or medication if necessary. 11/10/2023 Bipolar disorder, current episode mixed, unspecified (ICD-10 - F31.60) 1. ADHD: - Patient reports being off Adderall for weeks and experiencing difficulty concentrating and fatigue in the afternoon. Plan: - Restart Adderall ER 20mg in the morning and Adderall IR 10mg in the afternoon. - Monitor patient's response to medication and consider alternative treatments, such as Daytrana patch, if needed. 2. Insomnia: - Patient reports improved sleep with Trazodone but experiences grogginess with two pills. Plan: - Continue Trazodone 100mg at bedtime for sleep. - Monitor patient's sleep quality and adjust dosage if necessary. 3. Anxiety: - Patient reports not taking Sertraline and only using Carbamazepine and Trazodone. Plan: - Reevaluate the need for Sertraline in the future if anxiety symptoms worsen. 4. Bipolar Disorder: - Patient is currently taking Carbamazepine ER (one in the morning and two in the evening) and reports some forgetfulness with words. Plan: - Continue Carbamazepine ER for bipolar disorder management. - Monitor patient's cognitive function and consider adjusting the dosage or medication if necessary. Plan Of Treatment Medication Medication Name Sig Start Date Stop Date Notes carBAMazepine ER 300 MG 3 capsules Orall y daily for 90 days traZODone HCl 100 MG 1 tablet Oral Once a day for 90 days 11/10/2022 Amphetamine-Dextroamphetamin e 10 MG 1 tablet Oral once a day for 30 days 11/10/2023 Amphetamine-Dextroamphet ER 20 MG 1 capsule every morning Oral Once a day for 30 days 11/10/2023 Sertraline HCl 50 MG 1 tablet Oral Once a day for 90 days 11/10/2022 Next Appt Details Follow Up: 4 Weeks, Reason: f/u bipolar d/o , adhd Progress Notes * KIANNA DALTONDOB: [birth year] (43 yo M)Acc No.[id number]:11/10/2023 Patient:?KIANNA DALTON Provider:?FRANK TREVIZO :1980???Age:43 Y???Sex:Male Azeem e:11/10/2023 Address:[address] [place] [address] , [id number] Subjective: * Chief Complaints: * ???Follow up visit, medicati on evaluation * HPI: ???Depression Screening:? Chief complaint - Mental health management, including ADHD, insomnia, and mood stability. the note is transcribed using speech recognition software. It is a reflection of a visit with the patient. It might have some inaccuracy, including medication names and transcribing errors, though efforts have been made to correct them. Kianna Stone presents with concerns primarily related to his mental health management, including ADHD, insomnia, and mood stability. He reports not having taken Adderall for several weeks, which has impacted his energy levels and concentration, particularly in the afternoons. 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 He notes that without structure, he struggles to function and concentrate effectively. He mentions a history of alcohol-related issues, including a hospitalization prompted by family intervention. He has since abstained from drinking, although he admits to having a couple of drinks while out of town. He acknowledges that his family dynamics, particularly with his and daughter, contribute to his stress levels. His daughter is experiencing similar issues, and he feels his past behavior may have influenced her. He describes experiencing depressive episodes, though they are less severe and shorter in duration than before. He denies any active suicidal ideation but admits to occasional thoughts of wanting to not wake up. His sleep has improved with trazodone, though he experiences grogginess if he takes two pills. He wakes up early and struggles to return to sleep. He is currently taking carbamazepine ER, Adderall ER 20mg, and immediate release 10mg, though he has been off Adderall recently. He reports feeling tired in the afternoons, even before stopping Adderall, and questions its effectiveness. He also takes trazodone for sleep and has previously been on sertraline, which he is no longer taking. He mentions starting Caplyta but is unsure about its use due to insurance issues. Physically, he feels well, attributing this to his active involvement in soccer. ?RUFINA-7 (2018 Edition)?Feeling nervous, anxious, or on edge?More than half the days,?Not being able to stop or control worrying?More than half the days,?Worrying too much about different things?More than hafl the days,?Trouble relaxing?Nearly every day,?Being so restless that it is hard to sit still?Nearly every day,?Becoming easily annoyed or irritable?More than half the days,?Feeling afraid as if something awful might happen?Several days,?Total RUFINA-7 Score?15,?If you checked any problems, how difficult have they made it for you to do your work, take care of things at home, or get along with other people??Somewhat difficult,?Interpretation of Total?(15 and over) Severe.?[place]-Suicide Severity Rating Scale:?Suicide Risk (CSRS-screener)?in the past one month Have you wished you were or wished you could go to sleep and not wake up??Yes,?in the past one month Have you actually had any thoughts of killing yourself??No.?Depression screening:?PHQ-9?Little interest or pleasure in doing things?Several days,?Feeling down, depressed, or hopeless?Several days,?Trouble falling or staying asleep, or sleeping too much?Several days,?Feeling tired or having little energy?Nearly every day,?Poor appetite or overeating?More than half the days,?Feeling bad about yourself or that you are a failure, or have let yourself or your family down?Not at all, Trouble concentrating on things, such as reading the newspaper or watching television?Several days,?Moving or speaking so slowly that other people could have noticed; or the opposite, being so fidgety or restless that you have been moving around a lot more than usual?More than half the days,?Thoughts that you would be better off or of hurting yourself in some way?Not at all,?Total Score?11,?Interpretation?Moderate Depression.?Intervention?Depression Screening Findings?Positve,?Follow-Up for Depression?Management of mental health treatment,?Suicide Risk Assessment Performed?11/10/2023 ,?Additional Evaluation for Depression?Psychiatric interview and evaluation,?Name of the standardized tool used for adult depression screening:?Patient Health Questionnaire (PHQ-9).?History of Presenting Problem:?Anxiety?Onset: years ago.?Depression?bipolar d/o, Onset: years ago.?Obsessive thoughts?OCD.?Substance abuse?hx alcohol use d/o.?Pt was seen today and Urine drug screen was done. * Medical History:? * Surgical History:? * Hospitalization/Major Diagno stic Procedure:? * Social History:?Tobacco Use:?Tobacco Control (Standard)?Tobacco use:?Nonsmoker.?Migrated Social History:?Migrated Social History: Alcohol Intake: Heavy 03/20/2022,Tobacco Years: Never smoker 03/09/2018,Smoking Status: 0 11/10/2022. * Medications:?TakingProAir HF A 108 (90 Base) MCG/ACT Aerosol Solution Inhalation SUMAtriptan Succinate 100 MG Tablet Oral Amphetamine-Dextroamphetamine 10 MG Tablet 1 tablet Oral once a day Amphetamine-Dextroamphet ER 20 MG Capsule Extended Release 24 Hour 1 capsule every morning Oral Once a day traZODone HCl 100 MG Tablet Oral carBAMazepine ER 300 MG Capsule Extended Release 12 Hour TAKE 1 CAPSULE BY MOUTH EVERY MORNING AND 2 CAPSULES EVERY EVENING Taking ProAir HFA 108 (90 Base) MCG/ACT Aerosol Solution Inhalation Taking SUMAtriptan Succinate 100 MG Tablet Oral Taking Amphetamine-Dextroamphetamine 10 MG Tablet 1 tablet Oral once a day Taking Amphetamine-Dextroamphet ER 20 MG Capsule Extended Release 24 Hour 1 capsule every morning Oral Once a day Taking traZODone HCl 100 MG Tablet Oral Taking carBAMazepine ER 300 MG Capsule Extended Release 12 Hour TAKE 1 CAPSULE BY MOUTH EVERY MORNING AND 2 CAPSULES EVERY EVENING DiscontinueddiazePAM 5 MG Tablet Oral Hydrocortisone 2.5 % Cream Rectal buPROPion HCl ER (XL) 150 MG Tablet Extended Release 24 Hour Oral OLANZapine-FLUoxetine HCl 6-25 mg Capsule Oral Adderall 10 MG Tablet Oral Rizatriptan Benzoate 10 MG Tablet Oral QUEtiapine Fumarate 25 MG Tablet Oral predniSONE 50 MG Tablet Oral AIRSUPRA 90 MCG-80 MCG/ACTUATION HFA AEROSOL INHALER , Notes to Pharmacist: *[facility] Alert[facility]*Sertraline HCl 50 MG Tablet Oral QUEtiapine Fumarate 100 MG Tablet Oral carBAMazepine 100 mg Capsule Extended Release 12 Hour Oral , Notes to Pharmacist: *[facility]*Medication List reviewed and reconciled with the patientDiscontinued diazePAM 5 MG Tablet Oral Discontinued Hydrocortisone 2.5 % Cream Rectal Discontinued buPROPion HCl ER (XL) 150 MG Tablet Extended Release 24 Hour Oral Discontinued OLANZapine-FLUoxetine HCl 6-25 mg Capsule Oral Discontinued Adderall 10 MG Tablet Oral Discontinued Rizatriptan Benzoate 10 MG Tablet Oral Discontinued QUEtiapine Fumarate 25 MG Tablet Oral Discontinued predniSONE 50 MG Tablet Oral Discontinued AIRSUPRA 90 MCG-80 MCG/ACTUATION HFA AEROSOL INHALER , Notes to Pharmacist: *[facility] and Interaction Alert[facility]*Discontinued Sertraline HCl 50 MG Tablet Oral Discontinued QUEtiapine Fumarate 100 MG Tablet Oral Discontinued carBAMazepine 100 mg Capsule Extended Release 12 Hour Oral , Notes to Pharmacist: *[facility]*Medication List reviewed and reconciled with the patient * Allergies:?SULFA (SULFONAMID E ANTIBIOTICS): Allergy - Onset Date 04/24/2022no[Allergies Verified] Objective: * Vitals:?BP:118/84mm Hg, HR:6 0/min, Wt:195.4lbs, Wt-k.63 kg, Ht: 72.00 in, Ht-cm: 182.88 cm, BMI:26.5Index, Body Surface Area: 2.12. * Examination: ???General Examination: ???- Mental Status Examination: - Patient reports feeling OK but experiences fluctuations in mood with downs that are not as long or severe as before, without suicidal ideation but with passive wishes. - Describes significant fatigue, particularly in the afternoons, despite medication. - Reports cognitive issues such as forgetfulness and difficulty grasping situations. - Emotional impact noted from family dynamics and personal responsibilities. - Physical Examination: - General: Patient reports feeling physically well, attributing positive physical health to regular soccer activity. - Neurological: Patient experiences forgetfulness and afternoon fatigue, potentially medication-related. Assessment: * Assessment: 1.?Attention-deficit hyperac tivity disorder, combined type - F90.2 (Primary)???2.?Other insomnia - G47.09???3.?Generalized anxiety disorder - F41.1???4.?Bipolar disorder, current episode mixed, unspecified - F31.60??? 1. ADHD:- Patient reports be ing off Adderall for weeks and experiencing difficulty concentrating and fatigue in the afternoon.Plan:- Restart Adderall ER 20mg in the morning and Adderall IR 10mg in the afternoon.- Monitor patient's response to medication and consider alternative treatments, such as Daytrana patch, if needed.2. Insomnia:- Patient reports improved sleep with Trazodone but experiences grogginess with two pills.Plan:- Continue Trazodone 100mg at bedtime for sleep.- Monitor patient's sleep quality and adjust dosage if necessary.3. Anxiety:- Patient reports not taking Sertraline and only using Carbamazepine and Trazodone.Plan:- Reevaluate the need for Sertraline in the future if anxiety symptoms worsen.4. Bipolar Disorder:- Patient is currently taking Carbamazepine ER (one in the morning and two in the evening) and reports some forgetfulness with words.Plan:- Continue Carbamazepine ER for bipolar disorder management.- Monitor patient's cognitive function and consider adjusting the dosage or medication if necessary. Plan: * Treatment: 2.?Other insomnia? Refill traZODone HCl Tablet, 100 MG, 1 tablet, Oral, Once a day, 90 days, 90 Tablet, Refills 1.?? 3.?Generalized anxiety disor wilma? Stop Sertraline HCl Tablet, 50 MG, 1 tablet, Oral, Once a day, 90 days, 90 Tablet.?? 4.?Bipolar disorder, current episode mixed, unspecified? Refill carBAMazepine ER Capsule Extended Release 12 Hour, 300 MG, 3 capsules, Orally, daily, 90 days, 270 Capsule, Refills 1.?? * Labs:? * ?Lab: UDT (Collection Da te & Time - 11/10/2023) ? Value Reference Range ?THC POS 0 - 50 ng/ml * ?Cocaine NEG 0 - 300 ng/ml * ?Amphetamine NEG 0 - 1000 ng /ml * ?Buprenorphine (BUP) NEG 0 - 10 ng/ml * ?Secobarbital (Bar) NEG 0 - 300 ng/ml * ?Oxazepam (BZO) NEG 0 - 300 ng/ml * ?1-pgncqttear-9,6-wgoeweep-5,3-diphenylpyrrolidine (EDDP) NEG 0 - 300 ng/ml * ?Methamphetamine (MET) NEG 0 - 1000 ng/ml * ?Methylenedioxymethamphetamine (MDMA) NEG 0 - 500 ng/ml * ?Morphine (MOP 300/[id number]) NEG 0 - 300 ng/ml * ?Methadone (MTD) NEG 0 - 300 ng/ml * ?Phencyclidine (PCP) NEG 0 - 25 ng/ml * ?Propoxyphene (PPX) NEG 0 - 300 ng/ml * ?Nortriptyline (TCA) NEG 0 - 1000 ng/ml * ?Oxycodone NEG 0 - 300 ng/ml * Procedure Codes:?94745 DRUG TST PRSMV READ INSTRMNT ASSTD DIR OPT [id number] BEHAV ASSMT W/SCORE & DOCD/STAND [id number] VISIT COMPLEXITY INHERENT TO ONGOING CARE RELATED TO A PATIENT'S SINGLE, SERIOUS CONDITION OR A COMPLEX CONDITION * Follow Up:?4 Weeks (Reason: f/u bipolar d/o , adhd) * Billing Information: * Visit Code:? 83855 OFFICE OUTPATIENT VISIT 25 MINUTES DETAILED HISTORY AND EXAM/MODERATE MEDICAL DECISION MAKING. * Procedure Codes:? 89533 DRUG TST PRSMV READ INSTRMNT ASSTD DIR OPT OBS. 91359 BEHAV ASSMT W/SCORE & DOCD/STAND INSTRUMENT. G2211 VISIT COMPLEXITY INHERENT TO ONGOING CARE RELATED TO A PATIENT'S SINGLE, SERIOUS CONDITION OR A COMPLEX CONDITION. * Sign off status: Completed true * Provider:?FRANK TREVIZO Date:? Generated for Alicia rutledge/Clay/Majosmitting on:?02/01/2024 01:35 AM LEDGER POSTER History and Physical Notes * HPI (History of Present Illness) Category Sub-Category Detail Notes Category Not es History of Presenting Problem Anxiety Onset: years ago Pt was seen today and Urine drug screen was done Depression bipolar d/o, Onset: years ago Substance abuse hx alcohol use d/o Obsessive thoughts OCD Depression screening PHQ-9 Little inte rest or pleasure in doing things: Several days Feeling down, depressed, or hopeless: Se veral days Trouble falling or staying asleep, or sl eeping too much: Several days Feeling tired or having little energy: N early every day Poor appetite or overeating: More than h edilson the days Feeling bad about yourself o r that you are a failure, or have let yourself or your family down: Not at all Trouble concentrating on thi ngs, such as reading the newspaper or watching television: Several days Moving or speaking so slowly that other people could have noticed; or the opposite, being so fidgety or restless that you have been moving around a lot more than usual: More than half the days Thoughts that you would be b héctor off or of hurting yourself in some way: Not at all Total Score: 11 Interpretation: Moderate Depression Intervention Depression Screening Findings: P ositve Follow-Up for Depression: Management of mental health treatment Suicide Risk Assessment Performed: 11/09 Additional Evaluation for De pression: Psychiatric interview and evaluation Name of the standardized too l used for adult depression screening:: Patient Health Questionnaire (PHQ-9) Depression Screening RUFINA-7 (2018 Edition) Feelin g nervous, anxious, or on edge: More than half the days Not being able to stop or control worryi ng: More than half the days Worrying too much about different things : More than hafl the days Trouble relaxing: Nearly every day Being so restless that it is hard to sit still: Nearly every day Becoming easily annoyed or irritable: Mo re than half the days Feeling afraid as if something awful roderick ht happen: Several days Total RUFINA-7 Score: 15 If you checked any problems, how difficult have they made it for you to do your work, take care of things at home, or get along with other people?: Somewhat difficult Interpretation of Total: (15 and over) S [place]-Suicide Severity Rating Scale Suicide Risk (CSRS-screener) in the past one month Have you wished you were or wished you could go to sleep and not wake up?: Yes in the past one month Have y ou actually had any thoughts of killing yourself?: No Examination Category Sub-Category Detail Notes Category Not es General Examination - Mental Status Examination: - Patient reports feeling OK but experiences fluctuations in mood with downs that are not as long or severe as before, without suicidal ideation but with passive wishes. - Describes significant fatigue, particularly in the afternoons, despite medication. - Reports cognitive issues such as forgetfulness and difficulty grasping situations. - Emotional impact noted from family dynamics and personal responsibilities. - Physical Examination: - General: Patient reports feeling physically well, attributing positive physical health to regular soccer activity. - Neurological: Patient experiences forgetfulness and afternoon fatigue, potentially medication-related.
--- OUTSIDE RECORDS SUMMARY | 2024-02-01 01:36 | XMS_ITS | Patient Health Record ---
Author Organization [facility] Address [address] [place] [address] Care Team Providers Care Pusher Operator Name Role Phone Nando Galicia Unavailable [phone] Migration, Provider Unavailable Unavailable Allergies Allergen (clinical drug ingredient) Drug/Non Drug [...] Oxazepam (BZO) NEG 0 - 300 ng/ml 1-rzttaviovi-0,6-ntudrrpy-0,3-diphenylpyrrolidine (СЕРГЕЙ P) NEG 0 - 300 ng/ml Methamphetamine (MET) NEG 0 - 1000 ng/ml Methylenedioxymethamphetamine (MDMA) NEG 0 - 500 ng/ml Morphine (MOP 300/[id number]) NEG 0 - 300 ng/ml Methadone (MTD) NEG 0 - 300 ng/ml Phencyclidine (PCP) NEG 0 - 25 ng/ml Propoxyphene (PPX) NEG 0 - 300 ng/ml Nortriptyline (TCA) NEG 0 - 1000 ng/ml Oxycodone NEG 0 - 300 ng/ml Reason For Referral No Information Medications Medication SIG (Take, Route, Frequency, Duration) Notes Start Date End Date Status carBAMazepine ER 300 MG 3 capsules Orall y daily for 90 days Active Amphetamine-Dextroamphet ER 20 MG 1 capsule every morning Oral Once a day for 30 days 12/27/2023 Active traZODone HCl 100 MG 1 tablet Oral Once a day for 90 days 11/10/2022 Active Amphetamine-Dextroamphetamin e 10 MG 1 tablet Oral once a day for 30 days 12/27/2023 Active SUMAtriptan Succinate 100 MG Oral 11/10/2022 Active ProAir HFA 108 (90 Base) MCG/ACT Inhalation 11/10/2022 Active Immunizations Vaccine Route Administration Date Status Comme nts Moderna Covid-19 Vaccine 1st dose Unknown 03/26/2020 Ad ministered Moderna Covid-19 Vaccine 1st dose Unknown 04/23/2020 Ad ministered Moderna Covid-19 Vaccine 1st dose Unknown 01/01/2021 Ad ministered Social History Tobacco Use: Social History Observation Description Date Details (start date - stop date) Never Smoker NA - NA Sex Assigned At : Social History Observation Description Sex Assigned At Male Tobacco Control (Standard) Question Answer Notes Tobacco use: Nonsmoker Problems Problem Type SNOMED Code ICD Code Onset Dates Problem Status W/U Status Risk Notes Problem Generalized anxiety disorder (86449158) Generalized anxiety disorder (F41.1) Active confirmed Problem Insomnia (794842797) Other insomnia (G47.09) Active confirmed Vital Signs Heart Rate 60 /min 11/10/2023 Height-cm 182.88 cm 11/10/2023 Blood pressure diastolic 84 mm Hg 11/10/2023 Weight-kg 88.63 kg 11/10/2023 Height 72.00 in 11/10/2023 Blood pressure systolic 118 mm Hg 11/10/2023 Weight 195.4 lbs 11/10/2023 BMI 26.5 kg/m2 11/10/2023 Encounters Encounter Location Date Provider Diagnosis [facility] [employer] [address] [facility] [address] [address] 03/03/2023 Provider Migration Attention-deficit hyperactivity disorder, combined type F90.2 and Bipolar disorder, current episode depressed, severe, without psychotic features F31.4 [facility] [address] [facility] [address] 03/09/2023 Provider Migration Other insomnia G47.0 9 [facility], [facility] [address] [place] [address] 04/12/2023 Provider Migration Attention-deficit hyperactivity disorder, combined type F90.2 [facility], [facility] [address] [place] [address] 05/19/2023 Provider Migration Attention-deficit hyperactivity disorder, combined type F90.2 [facility], [facility] [address] [place] [address] 06/25/2023 Provider Migration Attention-deficit hyperactivity disorder, combined type F90.2 [facility], [facility] [address] [place] [address] 11/10/2023 Nando Galicia Attention-deficit hyperactivity disorder, combined type F90.2 ; Other insomnia G47.09 ; Generalized anxiety disorder F41.1 and Bipolar disorder, current episode mixed, unspecified F31.60 [facility], [facility] [address] [place] [address] 03/03/2023 Provider Migration [facility], [facility] [address] [place] [address] 03/09/2023 Provider Migration [facility], [facility] [address] [place] [address] 03/12/2023 Provider Migration [facility], [facility] [address] [place] [address] 04/12/2023 Provider Migration [facility], [facility] [address] [place] [address] 04/21/2023 Provider Migration [facility], [facility] [address] [place] [address] 05/19/2023 Provider Migration [facility], [facility] [address] [place] [address] 05/26/2023 Provider Migration [facility], [facility] [address] [place] [address] 06/09/2023 Provider [facility] [address] [place] [address] 06/23/2023 Provider Migration [facility], [facility] [address] [place] [address] 06/25/2023 Provider Migration [facility], [facility] [address] [place] [address] 07/03/2023 Provider Migration [facility] [address] [place] [address] 07/04/2023 Provider Migration [facility] [address] [place] [address] 09/08/2023 Nandoarin Cliffordoza Other insomnia G47.0 9 [place] [address] [place] [address] 09/08/2023 Nando Galicia Generalized anxiety disorder F41.1 [place] [address] [place] [address] 09/08/2023 Nando Galicia Bipolar disorder, current episode depressed, mild or moderate severity, unspecified F31.30 [place] [address] [address] 09/14/2023 Nando Galicia [place] [address] [address] 08/25/2023 Nando Galicia Attention-deficit hyperactivity disorder, combined type F90.2 [place] [address] [facility] [address] [place] [address] 08/25/2023 Nando Galicia Attention-deficit hyperactivity disorder, combined type F90.2 [place] [address] [address] 08/25/2023 Nando Galicia [place] [address] [address] 10/27/2023 Nando Galicia [facility] [address] [place] [address] 12/27/2023 Nando Galicia Attention-deficit hyperactivity disorder, combined type F90.2 Assessments Encounter Date Diagnosis (ICD Code) Assessment Notes Treatment Notes Treatment Clinical Notes Section Notes 09/08/2023 Other insomnia (ICD-10 - G47.09) 09/08/2023 Generalized anxiety disorder (ICD-10 - F41.1) 11/10/2023 Attention-deficit hyperactivity disorder, combined type (ICD-10 [...] adjusting the dosage or medication if necessary. 12/27/2023 Attention-deficit hyperactivity disorder, combined type (ICD-10 - F90.2) 03/03/2023 Bipolar disorder, current episode depressed, severe, without psychotic features (ICD-10 - F31.4) 03/03/2023 Attention-deficit hyperactivity disorder, combined type (ICD-10 - F90.2) 03/09/2023 Other insomnia (ICD-10 - G47.09) 04/12/2023 Attention-deficit hyperactivity disorder, combined type (ICD-10 - F90.2) 05/19/2023 Attention-deficit hyperactivity disorder, combined type (ICD-10 - F90.2) 06/25/2023 Attention-deficit hyperactivity disorder, combined type (ICD-10 - F90.2) 08/25/2023 Attention-deficit hyperactivity disorder, combined type (ICD-10 - F90.2) 08/25/2023 Attention-deficit hyperactivity disorder, combined type (ICD-10 - F90.2) 09/08/2023 Bipolar disorder, current episode depressed, mild or moderate severity, unspecified (ICD-10 - F31.30) 11/10/2023 Generalized anxiety disorder (ICD-10 - F41.1) [...] or medication if necessary. Plan Of Treatment No Information Insurance Providers Payer Name Payer Address Payer Phone Subscriber Number Group Number Insured Name Patient Relationship to Insured Coverage Start Date Coverage End Date [employer] [employer] [address] [place] [address] [id number] KIANNA DALTON Self - patient is the insured Medical (General) History Medical History History ICD Code Problems: Attention deficit hyperactivit y disorder, combined type Bipolar affective disorder, current epis ode depression Bipolar affective disorder, current epis ode mixed Bipolar disorder Bipolar I disorder, most recent episode hypomanic Generalized anxiety disorder Obsessive-compulsive disorder Persistent insomnia Primary insomnia , Surgical History Surgery Date(Month/Year) Other
--- OUTSIDE RECORDS SUMMARY | 2024-02-01 01:36 | XMS_ITS ---
Author Organization [facility] Address [address] [facility] [address] [place] [address] Care Team Providers Care Parquetry Floor Layer Name Role Phone Nando Galicia Unavailable [phone] REASON FOR VISIT meds Social History Sex Assigned At : Social History Observation Description Sex Assigned At Male Encounters Encounter Location Date Provider Diagnosis [facility] [address] [address] 10/27/2023 Nando Galicia Plan Of Treatment No Information Progress Notes * KIANNA DALTONDOB: [birth year] (43 yo M)Acc No.[id number]:10/27/2023 Patient:?KIANNA DALTON :1980???Age:43 Y???Sex:Male Address[facility] [address] * true * Date:? Generated for Alicia rutledge/Clay/eTransmitting on:?02/01/2024 01:36 AM SANDWICH COUNTER ATTENDANT
--- OUTSIDE RECORDS SUMMARY | 2024-02-01 01:36 | XMS_ITS | Encounter Summary ---
Author Organization [facility] Address [address] [place] [address]. [place], [place] [address] [place] [address] Care Team Providers Care Supervisor Photocomposition Name Role Phone Kit Miles MD Primary Care Provider [phone] Encounter Details Date Type Department Care Team (Latest Contact Info) Description 05/13/2022 Travel Social History Tobacco Use Types Packs/Day Years Used Date Smoking Tobacco: Never Smokeless Tobacco: Never Alcohol Use Standard Drinks/Week Comments Yes 0 (1 standard drink = 0.6 oz pur e alcohol) daily Sex and Gender Information Value Date Recorded Sex Assigned at Not on file Legal Sex Male 7:44 PM CDT Gender Identity Not on file Sexual Orientation Not on file COVID-19 Exposure Response Date Recorded In the last 10 days, have yo u been in contact with someone who was confirmed or suspected to have Coronavirus/COVID-19? No / Unsure 05/13/2022 7:54 PM CDT documented as of this encounter Plan of Treatment Not on file documented as of this encounter Visit Diagnoses Not on filedocumented in this encounter Additional Health Concerns Infection Onset Date Last Indicated Resolved Time COVID-19 Rule Out 05/13/2022 05/13/2022 05/13/2022 9:30 PM CDT documented as of this encounter Care Teams Supervisor Photocomposition Relationship Specialty Start Date End Date Kit Miles MD [address] [place] [address] PCP - General INTERNAL MEDICINE 05/13/22 documented as of this encounter
--- OUTSIDE RECORDS SUMMARY | 2024-02-01 01:36 | XMS_ITS | Clinical Summary ---
Author Organization [facility] Address [address] [place] [address]. [place], [place] [address] [place] [address] Care Team Providers Care Card Sorter Name Role Phone Kit Miles MD Primary Care Provider Allergies Active Allergy Reactions Criticality Noted Date Comments Sulfa Antibiotics Hives 05/13/2022 Social History Tobacco Use Types Packs/Day Years Used Date Smoking Tobacco: Never Smokeless Tobacco: Never Tobacco Cessation:Counseling Given: Not Answered Alcohol Use Standard Drinks/Week Comments Yes 0 (1 standard drink = 0.6 oz pur e alcohol) daily Sex and Gender Information Value Date Recorded Sex Assigned at Not on file Legal Sex Male 7:44 PM CDT Gender Identity Not on file Sexual Orientation Not on file Last Filed Vital Signs Vital Sign Reading Time Taken Comments Blood Pressure 132/86 05/13/2022 7:54 PM CDT Pulse 67 05/13/2022 7:54 PM CDT Temperature 36.4 ??C (97.6 ??F) 05/13/2022 7:54 PM CD T Respiratory Rate 20 05/13/2022 7:54 PM CDT Oxygen Saturation 100% 05/13/2022 7:54 PM CDT Inhaled Oxygen Concentration - - Weight 82.2 kg (181 lb 3.5 oz) 05/13/2022 7:54 P M CDT Height 182.9 cm (6') 05/13/2022 7:54 PM CDT Body Mass Index 24.58 05/13/2022 7:54 PM CDT Plan of Treatment Health Maintenance Due Date Last Done Comments Colorectal Cancer Screening Colonoscopy (10 Years) 1978 Annual Physical 1981 Hepatitis C 1996 DTaP, Tdap and Td Vaccines ( 1 - Tdap) 1997 Hepatitis B Vaccines (1 of 3 - 19+ 3-dose series) 1997 COVID-19 Vaccine (4 - 2023-2 5 season) 2023 01/01/2021, 04/23/2020, 03/26/2020 Influenza Adult (#1) 2023 01/01/2021 HPV Vaccines Aged Out No longer eligi ble based on patient's age to complete this topic Meningococcal Vaccine Aged Out No theresa yoselyn eligible based on patient's age to complete this topic Pneumococcal Vaccine: Pediatrics (0 to 5 Years) and At-Risk Patients (6 to 64 Years) Aged Out No longer eligible b ased on patient's age to complete this topic RSV Immunizations Under 20 Months Aged Out No longer eligible b ased on patient's age to complete this topic Insurance [place] [id number] [place] [address] Care Teams Card Sorter Relationship Specialty Start Date End Date Kit Miles MD [address] [place] [address] PCP - General INTERNAL MEDICINE 05/13/22
--- OUTSIDE RECORDS SUMMARY | 2024-02-01 01:37 | XMS_ITS | Encounter Summary ---
Author Organization [facility] Address [address] [place] [address] Care Team Providers Care Naval Gunfire Spotter Name Role Phone Unavailable Primary Care Provider Unavailabl e Encounter Details Date Type Department Care Team (Late st Contact Info) Description 03/10/2020 12:15 PM DIFFERENTIAL REPAIRER Rapid Evaluation [facility] of Public Health Community Testing [address] [address] Social History Tobacco Use Types Packs/Day Years Used Date Smoking Tobacco: Never Assessed Sex and Gender Information Value Date Recorded Sex Assigned at Not on file Legal Sex Male 11:53 AM DIFFERENTIAL REPAIRER Gender Identity Not on file Sexual Orientation Not on file documented as of this encounter Plan of Treatment Not on file documented as of this encounter Visit Diagnoses Not on filedocumented in this encounter
--- OUTSIDE RECORDS SUMMARY | 2024-02-01 01:37 | XMS_ITS | Encounter Summary ---
Author Organization [facility] Address [address] [facility] [address] [place] [address] Care Team Providers Care Backhaul Driver Name Role Phone Kit Miles MD Primary Care Provider [phone] Encounter Details Date Type Department Care Team (Late st Contact Info) Description 07/25/2020 Telephone [facility] Neurology [address] [facility] [address] [place] [address] Les Paez MD [address] [place] [address] [address] [place] [address] Social History Tobacco Use Types Packs/Day Years Used Date Smoking Tobacco: Never Smokeless Tobacco: Never Sex and Gender Information Value Date Recorded Sex Assigned at Not on file Legal Sex Male 5:56 PM AUTOMATION OPERATOR Gender Identity Not on file Sexual Orientation Not on file documented as of this encounter Miscellaneous Notes * Telephone Encounter - Nicole Silva MA - 07/26/2020 11:54 AM CDT Scheduled appt for patient in September (first available). I did put patient on cancellation list * Telephone Encounter - Les Paez MD - 07/26/2020 11:04 AM CDT Have him schedule routine appointment to discuss treatment options. * Telephone Encounter - Nicole Silva MA - 07/26/2020 10:13 AM CDT Patient states his graff are getting more frequent and lasting longer. 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 Pt is on Sumatriptan, however it isn't lasting. He is needingmore then that offers. Please advise * Telephone Encounter - Kirstin Joyner - 07/25/2020 3:19 PM CDT SKB......... Pt called stating his headaches are getting worse. He's not sure if his meds can be changed or if he should make an appt to come in. He uses [facility] in [place] documented in this encounter Plan of Treatment Not on file documented as of this encounter Visit Diagnoses Not on filedocumented in this encounter Care Teams Backhaul Driver Relationship Specialty Start Date End Date iKt Miles MD [address] [facility] [address] [place], [place] [id number] PCP - General Internal Medicine 01/24/20 documented as of this encounter
--- OUTSIDE RECORDS SUMMARY | 2024-02-01 01:37 | XMS_ITS | Clinical Summary ---
Author Organization [facility] Address [address] [place] [address] Care Team Providers Care Building Manager Name Role Phone Kit Miles MD Primary Care Provider [phone] Allergies Active Allergy Reactions Criticality Noted Date Comments Sulfa (Sulfonamide Antibiotics) Hives,Swelling Medium 03/12/2020 Medications carBAMazepine ER (CARBATROL) 300 mg 12 hr capsule Take 600 mg by mouth 2 (two) times a day 01/17/2020 Active gabapentin (NEURONTIN) 300 mg capsule TAKE 1 CAPSULE BY MOUTH EVERY DAY AT BEDTIME 01/13/2020 Active sertraline (ZOLOFT) 100 mg tablet Take 100 mg by mouth daily 02/26/2020 Active traZODone (DESYREL) 100 mg tablet TK 1 T PO QD HS 01/01/2020 Active Active Problems Problem Noted Date Diagnosed Date Migraine without aura, not i ntractable, without status migrainosus 03/12/2020 Assessment & Plan (03/12/2020 12:11 PM ASSOCIATE PROFESSOR OF FORESTRY): Patient is a former patient of [facility] being treated for migraine without aura with abortive treatment of sumatriptan 100 mg b.i.d. p.r.n.. Prior medical records from [facility] been requested unsuccessfully obtained. They will be again requested today. Since last being seen about 14 months ago he has continued on sumatriptan with good efficacy and tolerability. He is out of medication at this time. He is requesting refill. He has a normal neurological examination. I have renewed his sumatriptan 100 mg b.i.d. p.r.n. for abortive migraine control. I will see him back in the office in 1 year. Surgical History Surgery Date Site/Laterality Comments ORAL SURGERY Medical History Medical History Date Comments Migraine Depression Bipolar 1 disorder (HCC) OCD (obsessive compulsive disorder) Family History Medical History Relation Name Comments No Known Problems Brother Neuropathy Father Dementia Mother Relation Name Status Comments Brother Alive Father Alive Mother Alive Social History Tobacco Use Types Packs/Day Years Used Date Smoking Tobacco: Never Smokeless Tobacco: Never Personal Safety Answer Date Recorded Getting School Help Needed Not on file 05/01 Sex and Gender Information Value Date Recorded Sex Assigned at Not on file Legal Sex Male 5:56 PM ASSOCIATE PROFESSOR OF FORESTRY Gender Identity Not on file Sexual Orientation Not on file Obstetrics History Last Filed Vital Signs Vital Sign Reading Time Taken Comments Blood Pressure 120/80 03/12/2020 11:17 AM ASSOCIATE PROFESSOR OF FORESTRY Pulse 72 03/12/2020 11:17 AM ASSOCIATE PROFESSOR OF FORESTRY Temperature 37.2 ??C (98.9 ??F) 03/12/2020 1 1:17 AM ASSOCIATE PROFESSOR OF FORESTRY Respiratory Rate - - Oxygen Saturation - - Inhaled Oxygen Concentration - - Weight 96.1 kg (211 lb 12.8 oz) 021 11:17 AM ASSOCIATE PROFESSOR OF FORESTRY Height 182.9 cm (6') 03/12/2020 11:17 AM ASSOCIATE PROFESSOR OF FORESTRY Body Mass Index 28.73 03/12/2020 11:17 AM ASSOCIATE PROFESSOR OF FORESTRY Plan of Treatment [place] [address] [facility] Care Teams Building Manager Relationship Specialty Start Date End Date Kit Miles MD [address] [facility] [address] [place], [place] [id number] PCP - General Internal Medicine 01/24/20
--- OUTSIDE RECORDS SUMMARY | 2024-02-01 01:37 | XMS_ITS | Encounter Summary ---
Author Organization [facility] Address [address] [place] [address] Care Team Providers Care Digital Ad Trafficker Name Role Phone Unavailable Primary Care Provider Unavailabl e Encounter Details Date Type Department Care Team (Late st Contact Info) Description 03/10/2020 Lab Requisition [facility] of Public Health Community Testing [facility] [address] [place] [address] Wellington Draper MD [address] [place] [address] [place] [address] Social History Tobacco Use Types Packs/Day Years Used Date Smoking Tobacco: Never Assessed Sex and Gender Information Value Date Recorded Sex Assigned at Not on file Legal Sex Male 11:53 AM WHEEL TUNER Gender Identity Not on file Sexual Orientation Not on file documented as of this encounter Plan of Treatment Not on file documented as of this encounter Procedures Procedure Name Priority Date/Time Associated Diagnosis Comments SARS-COV-2 PCR [facility] ONLY Routine 03/10/2020 12:06 PM WHEEL TUNER documented in this encounter Visit Diagnoses Not on filedocumented in this encounter
--- OUTSIDE RECORDS SUMMARY | 2024-02-01 01:37 | XMS_ITS | Encounter Summary ---
Author Organization [facility] Address [address] [place] [address]. [place], [place] [id number] [place] [id number] Care Team Providers Care Diagnostic Imaging Manager Name Role Phone Kit Miles MD Primary Care Provider [phone] Reason for Visit * Reason Comments Anxiety Encounter Details Date Type Department Care Team (Late st Contact Info) Description 05/13/2022 7:48 PM CDT - 05/13/2022 10:[address] [facility] [place] [address] Gabino Sterling MD,PHD [address] [place] [address] Anxiety Discharge Disposition: Home or Self Care (Routine Discharge) Social History Tobacco Use Types Packs/Day Years [...] PM CDT documented as of this encounter Last Filed Vital Signs Vital Sign Reading [...] Mass Index 24.58 05/13/2022 7:54 PM CDT documented in this encounter Discharge Instructions * Attachments The following attachments cannot be sent through Care Everywhere. * Alcohol Use - When Is Drinking a Problem? (Thai) documented in this encounter ED Notes * Vernell Alarcon RN - 05/13/2022 10:19 PM CDT Pts at bedside to take patient home, belongings returned to pt * Gabino Sterling MD,PHD - 05/13/2022 8:37 PM CDT EMERGENCY DEPARTMENT ENCOUNTER Chief Complaint Chief Complaint Patient presents with ??? Anxiety History of Present Illness 41-year-old male presenting to the emergency department with a chief complaint of despair . The patient has hand surgery scheduled for tomorrow, this is making him anxious due to him fearful of missing work. Today, the patient estimates he drinks 7 beers, which made his symptoms worse. He now feels improved. He denies suicidal ideations, homicidal ideations, or feeling unsafe. He denies chest pain, shortness of breath, abdominal pain or any other somatic complaints. The patient has multiple superficial self inflicted lacerations that he reports he has inflicted as a coping mechanism, denyingthat the intent was to significantly injure himself. He has no specific requests at this time. He has requesting discharge home if possible. Physical Exam Filed Vitals: 05/13/221953 BP: 132/86 Pulse: 67 Resp: 20 Temp: 97.6 ??F (36.4 ??C) TempSrc: Oral SpO2: 100% Weight: 82.2 kg (181 lb 3.5 oz) Height: 6' (1.829 m) CONSTITUTIONAL: Patient is awake, alert, in no acute distress, conversant HEAD AND FACE: Normocephalic, atraumatic EYES: Normal sclera, extraocular motions grossly normal NECK: Supple, no obvious asymmetry CARDIOVASCULAR: Regular rate and rhythm RESPIRATORY: No respiratory distress or tachypnea, no wheezing or crackles ABDOMEN: Soft, nontender, nondistended, NEUROLOGIC: GCS 15, CN2-12 grossly intact, moves all extremities EXTREMITIES: Warm, no edema Diagnostic Studies / Procedures ELECTROCARDIOGRAMS: EKG, TIME 1957 Rate 64, normal sinus rhythm, no ectopy, normal intervals, normal axis, no concordant ST elevations Interpretation by me: normal EKG LABORATORY STUDIES: Results for orders placed or performed during the hospital encounter of 05/13/22 CBC W/DIFF AUTOMATED Result Value Ref Range WBC 4.7 4.5 - 11.0 x10'3/uL RBC 4.79 4.70 - 6.10 x10'6/uL HGB 14.4 14.0 - 18.0 G/DL HCT 41.7 (L) 43.0 - 54.0 % MCV 87.1 80.0 - 94.0 FL MCH 30.1 27.0 - 31.0 PG MCHC 34.5 32.0 - 36.0 G/DL RDW 12.5 11.5 - 14.5 % PLT 281 130 - 400 x10'3/uL MPV 8.2 (L) 9.3 - 12.2 FL DIFFERENTIAL TYPE AUTOMATED DIFFERENTIAL NEUTROPHILS 47.7 % LYMPHOCYTES 42.3 % MONOCYTES 7.0 % EOSINOPHILS 1.5 % BASOPHILS 1.3 % IMMATURE GRANS 0.2 % ABS. NEUTROPHILS TOTAL 2.24 1.80 - 7.70 x10'3/uL ABS. LYMPHOCYTES 1.99 1.00 - 4.80 x10'3/uL ABS. MONOCYTES 0.33 0.30 - 0.82 x10'3/uL ABS. EOSINOPHILS 0.07 0.04 - 0.54 x10'3/uL ABS. BASOPHILS 0.06 0.01 - 0.08 x10'3/uL ABS. IMMATURE GRANULOCYTES 0.01 0.00 - 0.49 x10'3/uL SALICYLATE Result Value Ref Range SALICYLATES <1.7 (L) 2.8 - 20.0 MG/DL URINALYSIS, AUTO, COMPLETE Result Value Ref Range Specimen Type URINE CLEAN CATCH COLOR (U) COLORLESS TRANSPARENCY CLEAR SPECIFIC GRAVITY (U) 1.010 1.001 - 1.030 U PH 7.5 5.0 - 9.0 LEUKOCYTES (U) NEGATIVE NEGATIVE NITRITES NEGATIVE NEGATIVE PROTEIN (U) NEGATIVE <30 MG/DL URINE GLUCOSE NORMAL NORMAL MG/DL KETONES (U) NEGATIVE NEGATIVE MG/DL UROBILINOGEN NORMAL NORMAL MG/DL BILIRUBIN (U) NEGATIVE NEGATIVE MG/DL BLOOD (U) NEGATIVE NEGATIVE CULTURE & SENSITIVITY INDICATED? CULTURE IS NOT INDICATED WBC/HPF 1 <6 /HPF RBC/HPF 2 <6 /HPF SQUAMOUS EPITHELIALS RARE /HPF DRUG SCREEN RAPID Result Value Ref Range AMPHETAMINE (U) NEGATIVE NEGATIVE BARBITURATES SCREEN (U) NEGATIVE NEGATIVE BENZODIAZEPINES SCREEN (U) NEGATIVE NEGATIVE CANNABINOIDS SCREEN (U) NEGATIVE NEGATIVE COCAINE METABOLITES (U) NEGATIVE NEGATIVE METHADONE (U) NEGATIVE NEGATIVE OPIATE SCREEN (U) NEGATIVE NEGATIVE PHENCYCLIDINE PCP (U) NEGATIVE NEGATIVE CREATININE (U) 35.7 (L) 39 - 259 MG/DL ED Course / Medical Decision Making Patient presenting with a chief complaint of despair The patient adamantly denies homicidal or suicidal ideations. He feels safe at home. He is exhibiting no signs of grave disability. History is provided by the patient who is deemed to be a reliable historian I reviewed the patient's labs, which are significant for an elevated alcohol level, though clinically this is not significantly impairing him during the interview. His CMP is unremarkable. He is Tylenol and salicylate levels are negative. His CBC is unremarkable. His urinalysis is negative for infecti I independently reviewed the patient's EKG, my interpretation is above. I interpreted the patient's pulse oximeter at rest, which is 100% on room air, which is normal and determined that this patient is not hypoxic The patient while not clinically impaired, denies homicidal or suicidal ideations. He is exhibitingno signs of grave disability. The patient was thus deemed stable for discharge from emergency department. A friend picks him up. He ambulates with a steady gait from the emergency department. Clinical Impression Alcohol abuse (Primary) Acute reaction to situational stress Disposition: Discharge home Patient provided with printed and verbal discharge care instructions and was instructed to return to the emergency department immediately with worsening symptoms or new worrisome symptoms. Patient was instructed to follow-up with primary care physician within 1 week for further evaluation and treatment. Diagnoses & treatment discussed with patient Patient expressed understanding and agreed. Gabino Sterling MD,PHD 05/14/22 0659 * Vernell Alarcon RN - 05/13/2022 8:03 PM CDT Pt in blue scrubs, personal belongings removed, wanded for meta, and sitter at bedside * Stephanie Olvera RN - 05/13/2022 7:58 PM CDT Notified lab about the PCR * Vernell Alarcon RN - 05/13/2022 7:55 PM CDT Pt arrives to the ER with complains of anxiety. Pt states he has been feeling anxious and depressed. Denies any SI or HI. Reports self superficial cutting to right rib area, right hip, left shoulder,left knee, and midsternal chest. Pt reports alcohol use daily. Reports alcohol use today. Pt is alert and oriented x4. * Stephanie Olvera RN - 05/13/2022 7:48 PM CDT Bed: 17 Expected date: Expected time: Means of arrival: Comments: [facility] documented in this encounter Plan of Treatment Not on file documented as of this encounter Procedures Procedure Name Priority Date/Time Associated Diagnosis Comments ECG 12-LEAD STAT 05/13/2022 7:58 PM CDT DRUG SCREEN RAPID STAT 05/13/2022 7:5 8 PM CDT URINALYSIS, AUTO, COMPLETE STAT 05/13/2022 7:58 PM CDT RESPIRATORY PCR PANEL 2 STAT 05/13/2022 7:57 PM CDT COMPREHENSIVE METABOLIC PANEL STAT 05/13/2022 7:48 PM CDT CBC W/DIFF AUTOMATED STAT 05/13/2022 7:48 PM CDT THYROID STIM HORMONE TSH STAT 05/13/2022 7:48 PM CDT SALICYLATE STAT 05/13/2022 7:48 PM CDT ETHANOL STAT 05/13/2022 7:48 PM CDT ACETAMINOPHEN STAT 05/13/2022 7:48 PM CDT documented in this encounter Results * (ABNORMAL) DRUG SCREEN RAPID (05/13/2022 7:58 PM CDT) Pathologist [facility] AMPHETAMINE (U) NEGATIVE NEGATIVE 8:33 PM CDT [facility] BARBITURATES SCREEN (U) NEGATIVE NEGATIVE 05/13/2022 8:33 PM CDT [facility] BENZODIAZEPINES SCREEN (U) NEGATIVE NEGATIVE 05/13/2022 8:33 PM CDT [facility] CANNABINOIDS SCREEN (U) NEGATIVE NEGATIVE 05/13/2022 8:33 PM CDT [facility] COCAINE METABOLITES (U) NEGATIVE NEGATIVE 05/13/2022 8:33 PM CDT [facility] METHADONE (U) NEGATIVE NEGATIVE 05/13/2022 8:33 PM CDT [facility] OPIATE SCREEN (U) NEGATIVE NEGATIVE 023 8:33 PM CDT [facility] PHENCYCLIDINE PCP (U) NEGATIVE NEGATIVE 05/13/2022 8:33 PM CDT [facility] Comment: NOTE: RESULTS OF THIS DRUG SCREEN SHOULD BE USED FOR MEDICAL PURPOSES ONLY AND NOT FOR LEGAL OR EMPLOYMENT PURPOSES. POSITIVE RESULTS ARE NOT CONFIRMED. MEDICATIONS CONTAINING EPHEDRINE MAY CAUSE FALSE POSITIVE AMPHETAMINE CALL , LAB, TO REQUEST CONFIRMATION TESTING. IF CREATININE IS <40 mg/dL. ??RECOLLECTION IS SUGGESTED. AMPHETAMINE- ?500 NG/ML BARBITURATE- ?200 NG/ML BENZODIAZEPINES- ??200 NG/ML THC- ? 50 NG/ML COCAINE- ?150 NG/ML METHADONE- ?300 NG/ML OPIATE- ? 300 MG/ML PCP- ? 25 NG/ML CREATININE (U) 35.7(L) 39 - 259 MG/DL 05/13/2022 8:33 PM CDT [facility] URINE SPECIMEN / Unknown 05/13/2022 7:58 PM CDT us Gabino Sterling MD,PHD URINE ORDERABLES Final Res ult [facility] [address] [place] [address], * URINALYSIS, AUTO, COMPLETE (05/13/2022 7:58 PM CDT) SPECIMEN TYPE URINE CLEAN CATCH 05/13/2022 8:01 PM CDT [facility] COLOR (U) COLORLESS 05/13/2022 8:29 PM CDT [facility] TRANSPARENCY CLEAR 05/13/2022 8:29 PM CDT [facility] SPECIFIC GRAVITY (U) 1.010 1.001 - 1.030 05/13/2022 8:29 PM T [facility] U PH 7.5 5.0 - 9.0 05/13/2022 8:29 PM [facility] LEUKOCYTES (U) NEGATIVE NEGATIVE 05/13/2022 8:29 PM T [facility] NITRITES NEGATIVE NEGATIVE 05/13/2022 8:29 PM T [facility] PROTEIN (U) NEGATIVE <30 MG/DL 05/13/2022 8:29 PM T [facility] URINE GLUCOSE NORMAL NORMAL MG/DL 05/13/2022 8:29 PM [facility] KETONES MG/DL (U) NEGATIVE NEGATIVE MG/DL 05/13/2022 8:29 PM [facility] UROBILINOGEN NORMAL NORMAL MG/DL 05/13/2022 8:29 PM T [facility] BILIRUBIN (U) NEGATIVE NEGATIVE MG/DL 05/13/2022 8:29 PM [facility] BLOOD (U) NEGATIVE NEGATIVE 05/13/2022 8:29 PM [facility] CULTURE & SENSITIVITY INDICATED? CULTURE IS NOT INDICATED 05/13/2022 8:29 PM [facility] WBC/HPF 1 <6 /HPF 05/13/2022 8:29 PM [facility] RBC/HPF 2 <6 /HPF 05/13/2022 8:29 PM [facility] SQUAMOUS EPITHELIALS RARE /HPF 05/13/2022 8:29 PM [facility] URINE SPECIMEN OBTAINED BY CLEAN CATCH PROCEDURE / Unknown 05/13/2022 7:58 PM CDT us Gabino Sterling MD,PHD URINE ORDERABLES Final Res ult [facility] [address] [place] [address], * ECG 12 lead (05/13/2022 7:58 PM CDT) 05/13/2022 7:58 PM CDT Narrative [facility] - 05/13/2022 10:33 PM CDT ?[facility] [address] [facility] [place] ? Test Date: ?2022-05-13 Pat Name: ? KIANNA RICHMOND ? Department: ?? 41 ? Room: ? [id number] Gender: ? M ?Refining Still Operator: ?? [id number] : ?1980 ? Requested By: TEJ SINGLETON Order Number: [id number] ? Vinny [place]: ?? Darian Santos ? Measurements Intervals ?[place] ? Rate: ? 64 ? P: ?6 CT: ? 173 ?QRS: ?35 QRSD: ? 98 ? T: ?46 QT: ? 368 ? QTc: ?382 ? Interpretive Statements SINUS RHYTHM No previous ECG available for comparison Procedure Note Darian Santos MD - 05/13/2022 [facility] [place] [address] [facility] Test Date: 2022-05-13 Pat Name: KIANNA RICHMOND Department: 41 Room: [id number] Gender: M Refining Still Operator: [id number] : 1980 Requested By: TEJ SINGLETON Order Number: [id number] Reading MD: Darian Santos Measurements Intervals [place] Rate: 64 P: 6 CT: 173 QRS: 35 QRSD: 98 T: 46 QT: 368 QTc: 382 Interpretive Statements SINUS RHYTHM No previous ECG available for comparison us Gabino Sterling MD,PHD ECG ORDERABLES Final Resu lt [facility] * RESPIRATORY PCR PANEL 2 (05/13/2022 7:57 PM CDT) Pathologist [facility] ADENOVIRUS PCR (RESP) NOT DETECTED NOT DETECTED 05/13/2022 9:29 PM CDT [facility] CORONAVIRUS 229E PCR (RESP) NOT DETECTED NOT DETECTED 05/13/2022 9:29 PM CDT [facility] CORONAVIRUS HKU1 PCR (RESP) NOT DETECTED NOT DETECTED 05/13/2022 9:29 PM CDT [facility] CORONAVIRUS NL63 PCR (RESP) NOT DETECTED NOT DETECTED 05/13/2022 9:29 PM CDT [facility] CORONAVIRUS OC43 PCR (RESP) NOT DETECTED NOT DETECTED 05/13/2022 9:29 PM CDT [facility] METAPNEUMOVIRUS PCR (RESP) NOT DETECTED NOT DETECTED 05/13/2022 9:29 PM CDT [facility] RHINOVIRUS/ENTEROV IRUS PCR (RESP) NOT DETECTED NOT DETECTED 05/13/2022 9:29 PM CDT [facility] INFLUENZA A PCR (RESP) NOT DETECTED NOT DETECTED 05/13/2022 9:29 PM CDT [facility] INFLUENZA B PCR (RESP) NOT DETECTED NOT DETECTED 05/13/2022 9:29 PM CDT [facility] PARAINFLUENZA 1 PCR (RESP) NOT DETECTED NOT DETECTED 05/13/2022 9:29 PM CDT [facility] PARAINFLUENZA 2 PCR (RESP) NOT DETECTED NOT DETECTED 05/13/2022 9:29 PM CDT [facility] PARAINFLUENZA 3 PCR (RESP) NOT DETECTED NOT DETECTED 05/13/2022 9:29 PM CDT [facility] PARAINFLUENZA 4 PCR (RESP) NOT DETECTED NOT DETECTED 05/13/2022 9:29 PM CDT [facility] RSV PCR (RESP) NOT DETECTED NOT DETECTED 05/13/2022 9:29 PM CDT [facility] B PARAPERTUSIS PCR (RESP) NOT DETECTED NOT DETECTED 05/13/2022 9:29 PM CDT [facility] BORDETELLA PERTUSSIS PCR (RESP) NOT DETECTED NOT DETECTED 05/13/2022 9:29 PM CDT [facility] CHLAMYDOPHILA PNEUMONIAE PCR (RESP) NOT DETECTED NOT DETECTED 05/13/2022 9:29 PM CDT [facility] MYCOPLASMA PNEUMONIAE PCR (RESP) NOT DETECTED NOT DETECTED 05/13/2022 9:29 PM CDT [facility] CORONAVIRUS SARS COV 2 PCR (RESP) NOT DETECTED NOT DETECTED 05/13/2022 9:29 PM CDT [facility] FIRST TEST UNKNOWN 05/13/2022 7:58 PM CDT [facility] EMPLOYED IN HEALTHCARE UNKNOWN 05/13/2022 7:58 PM CDT [facility] SYMPTOMATIC DEFINED BY CDC UNKNOWN 05/13/2022 7:58 PM CDT [facility] HOSPITALIZATION STATUS YES 05/13/2022 7:58 PM CDT [facility] PATIENT IN ICU NO 05/13/2022 7:58 PM CDT [facility] UNKNOWN 05/13/2022 7:58 PM CDT [facility] NASOPHARYNGEAL SWAB / Unknown 05/13/2022 7:57 PM CDT Gabino Sterling MD,PHD MICROBIOLOGY - GENERAL ORD ERABLES Final Result Performing Organization Address City/[facility]/ZIP Co de Phone Number [facility] [address] [place] [address], [place] [phone] * (ABNORMAL) SALICYLATE (05/13/2022 7:48 PM CDT) SALICYLATES <1.7(L) 2.8 - 20.0 MG/DL 05/13/2022 8:29 PM CDT [facility] Comment: THERAPEUTIC: ?2.8-20.0 Toxic Level: ?>=30 05/13/2022 7:48 PM CDT Gabino Sterling MD,PHD LABORATORY Final Resu lt Performing Organization Address [facility] Co de Phone Number [facility] [address] [place] [address], [place] [phone] * THYROID STIM HORMONE, TSH (05/13/2022 7:48 PM CDT) TSH 0.636 0.358 - 3.74 uIU/ML 05/13/2022 8:48 PM CDT [facility] Comment: HIGH DOSES OF BIOTIN MAY INTERFERE WITH THIS TEST RESULT. CORRELATION TO CLINICAL HISTORY AND PRESENTATION RECOMMENDED. 05/13/2022 7:48 PM CDT us Gabino Sterling MD,PHD LABORATORY Final Resu lt Performing Organization Address City/[facility]/ZIP Co de Phone Number [facility] [address] [place] [address], [place] [phone] * (ABNORMAL) ACETAMINOPHEN (05/13/2022 7:48 PM CDT) ACETAMINOPHEN S/P/B <2.0(L) 10.0 - 30.0 MCG/ML 05/13/2022 8:48 PM CDT [facility] Comment: ?THERAPEUTIC: 10-30 ?TOXIC: >200 05/13/2022 7:48 PM CDT Gabino Sterling MD,PHD LABORATORY Final Resu lt Performing Organization Address [facility]/ZIP Co de Phone Number [facility] [address] [place] [address], * (ABNORMAL) ETHANOL (05/13/2022 7:48 PM CDT) ALCOHOL S/P/B 0.121(H) <0.003 G/DL 05/13/2022 8:48 PM CDT [facility] 05/13/2022 7:48 PM CDT Gabino Sterling MD,PHD LABORATORY Final Resu lt Performing Organization Address City/[facility]/ZIP Co de Phone Number [facility] [address] [place] [address], * (ABNORMAL) COMPREHENSIVE METABOLIC PANEL (05/13/2022 7:48 PM CDT) GLUCOSE 87 70 - 99 MG/DL 05/13/2022 8:48 PM CDT [facility] BUN 13 7 - 18 MG/DL 05/13/2022 8:48 PM CDT [facility] CREATININE S/P/B 1.16 0.7 - 1.3 MG/DL 05/13/2022 8:48 PM CDT [facility] SODIUM S/P/B 141 136 - 145 MMOL/L 05/13/2022 8:48 PM CDT [facility] POTASSIUM S/P/B 4.2 3.5 - 5.1 MMOL/L 05/13/2022 8:48 PM CDT [facility] CHLORIDE S/P/B 109(H) 100 - 108 MMOL/L 05/13/2022 8:48 PM CDT [facility] CO2 25.0 21 - 32 MMOL/L 05/13/2022 8:48 PM CDT [facility] CALCIUM S/P/B 8.9 8.5 - 10.1 MG/DL 05/13/2022 8:48 PM CDT [facility] BILIRUBIN TOTAL S/P/B 0.3 0.2 - 1.2 MG/DL 05/13/2022 8:48 PM CDT [facility] Comment: THIS ASSAY IS NOT RECOMMENDED FOR PATIENTS UNDERGOING TREATMENT WITH ELTROMBOPAG DUE TO THE POTENTIAL FOR FALSELY ELEVATED RESULTS. TOTAL PROTEIN S/P/B 7.5 6.4 - 8.2 G/DL 05/13/2022 8:48 PM CDT [facility] ALBUMIN S/P/B 4.2 3.4 - 5.0 G/DL 05/13/2022 8:48 PM CDT [facility] AST 23 15 - 37 U/L 05/13/2022 8:48 PM CDT [facility] ALT 38 16 - 60 U/L 05/13/2022 8:48 PM CDT [facility] ALKALINE PHOSPHATASE S/P/B 81 50 - 136 U/L 05/13/2022 8:48 PM CDT [facility] ANION GAP 7.0 5 - 15 MMOL/L 05/13/2022 8:48 PM CDT [facility] BUN CREATININE RATIO 11.2 6 - 26 05/13/2022 8:48 PM CDT [facility] A/G RATIO 1.3 1.0 - 2.0 RATIO 05/13/2022 8:48 PM CDT [facility] GFR ESTIMATE 80(L) >90 ML/MIN/1.7 3 M2 05/13/2022 8:48 PM CDT [facility] Comment: NOTE: eGFR is not calculated for patients <18 years of age. This is an estimated GFR calculation using the new CKD EPI creatinine equation without race and so does not require a correction factor for race. This estimated GFR should not be used for calculating drug doses. 05/13/2022 7:48 PM CDT us Gabino Sterling MD,PHD LABORATORY Final Resu lt [facility] [address] [place] [address], [place] [phone] * (ABNORMAL) CBC W/DIFF AUTOMATED (05/13/2022 7:48 PM CDT) WBC 4.7 4.5 - 11.0 x10'3/uL 05/13/2022 8:01 PM CDT [facility] RBC 4.79 4.70 - 6.10 x10'6/uL 05/13/2022 8:01 PM CDT [facility] HGB 14.4 14.0 - 18.0 G/DL 05/13/2022 8:01 PM CDT [facility] HCT 41.7(L) 43.0 - 54.0 % 05/13/2022 8:01 PM CDT [facility] MCV 87.1 80.0 - 94.0 FL 05/13/2022 8:01 PM CDT [facility] MCH 30.1 27.0 - 31.0 PG 05/13/2022 8:01 PM CDT [facility] MCHC 34.5 32.0 - 36.0 G/DL 05/13/2022 8:01 PM CDT [facility] RDW 12.5 11.5 - 14.5 % 05/13/2022 8:01 PM CDT [facility] PLT 281 130 - 400 x10'3/uL 05/13/2022 8:01 PM CDT [facility] MPV 8.2(L) 9.3 - 12.2 FL 05/13/2022 8:01 PM CDT [facility] DIFFERENTIAL TYPE AUTOMATED DIFFERENTIAL 05/13/2022 8:01 PM CDT [facility] NEUTROPHILS % 47.7 % 05/13/2022 8:01 PM CDT [facility] LYMPHOCYTES % 42.3 % 05/13/2022 8:01 PM CDT [facility] MONOCYTES % 7.0 % 05/13/2022 8:01 PM CDT [facility] EOSINOPHILS 1.5 % 05/13/2022 8:01 PM CDT [facility] BASOPHILS 1.3 % 05/13/2022 8:01 PM CDT [facility] IMMATURE GRANS % 0.2 % 05/14/19 8:01 PM CDT [facility] ABS. NEUTROPHILS TOTAL 2.24 1.80 - 7.70 x10'3/uL 05/13/2022 8:01 PM CDT [facility] ABS. LYMPHOCYTES 1.99 1.00 - 4.80 x10'3/uL 05/13/2022 8:01 PM CDT [facility] ABS. MONOCYTES 0.33 0.30 - 0.82 x10'3/uL 05/13/2022 8:01 PM CDT [facility] ABS. EOSINOPHILS 0.07 0.04 - 0.54 x10'3/uL 05/13/2022 8:01 PM CDT [facility] ABS. BASOPHILS 0.06 0.01 - 0.08 x10'3/uL 05/13/2022 8:01 PM CDT [facility] ABS. IMMATURE GRANULOCYTES 0.01 0.00 - 0.49 x10'3/uL 05/13/2022 8:01 PM CDT [facility] 05/13/2022 7:48 PM CDT us Gabino Sterling MD,PHD LABORATORY Final Resu lt [facility] [address] [place] [address], documented in this encounter Visit Diagnoses Diagnosis Alcohol abuse- Primary Alcohol abuse, unspecified Acute reaction to situational stress documented in this encounter Additional Health Concerns Infection Onset Date Last Indicated Resolved Time COVID-19 Rule Out 05/13/2022 05/13/2022 05/13/2022 9:30 PM CDT documented as of this encounter Care Teams Diagnostic Imaging Manager Relationship Specialty Start Date End Date Kit Miles MD [address] [place] [address] PCP - General INTERNAL MEDICINE 05/13/22 documented as of this encounter
--- OUTSIDE RECORDS SUMMARY | 2024-02-01 01:37 | XMS_ITS | Clinical Summary ---
Author Organization [facility] Care Team Providers Care Senior Product Marketing Manager Name Role Phone Unavailable Primary Care Provider Unavailabl e Social History Tobacco Use Types Packs/Day Years Used Date Smoking Tobacco: Never Assessed Sex and Gender Information Value Date Recorded Sex Assigned at Not on file Legal Sex Male 11:53 AM [employer] Gender Identity Not on file Sexual Orientation Not on file Plan of Treatment Health Maintenance Due Date Last Done Comments Hepatitis C Virus (HCV) Screening 1978 TdaP Immunization 1978 Hepatitis B Immunization (1 of 3 - 19+ 3-dose series) 1997 SARS-COV-2 Immunization ( season) 2022 Colonoscopy 06/19/2023 Colorectal Cancer Screening 06/19/2023 Influenza Immunization (Seas on Ended) 2023 Meningococcal Immunization (ACWY) Aged Out No longer eligible based on patient's age to complete this topic Pneumococcal Immunization Combined Aged Out No longer eligible based on patient's age to complete this topic Rotavirus Immunization Aged Out No lo nger eligible based on patient's age to complete this topic
--- OUTSIDE RECORDS SUMMARY | 2024-02-01 01:37 | XMS_ITS | Encounter Summary ---
Author Organization [facility] Address [address] [place] [address] Care Team Providers Care Assembly Supervisor Name Role Phone Kit Miles MD Primary Care Provider [phone] Reason for Visit * Reason Comments New Patient GN Patient Migraine Encounter Details Date Type Department Care Team (Late st Contact Info) Description 03/12/2020 11:00 AM SCREW CUTTER Office Visit [facility] Neurology [address] [place] [address] Les Paez MD [address] [place] [address] [address] [place] [address] Migraine without aura, not intractable, without status migrainosus (Primary Dx) Social History Tobacco Use Types Packs/Day Years Used Date Smoking Tobacco: Never Smokeless Tobacco: Never Sex and Gender Information Value Date Recorded Sex Assigned at Not on file Legal Sex Male 5:56 PM SCREW CUTTER Gender Identity Not on file Sexual Orientation Not on file documented as of this encounter Last Filed Vital Signs Vital Sign Reading Time Taken Comments Blood Pressure 120/80 03/12/2020 11:17 AM SCREW CUTTER Pulse 72 03/12/2020 11:17 AM SCREW CUTTER Temperature 37.2 ??C (98.9 ??F) 03/12/2020 1 1:17 AM SCREW CUTTER Respiratory Rate - - Oxygen Saturation - - Inhaled Oxygen Concentration - - Weight 96.1 kg (211 lb 12.8 oz) 021 11:17 AM SCREW CUTTER Height 182.9 cm (6') 03/12/2020 11:17 AM SCREW CUTTER Body Mass Index 28.73 03/12/2020 11:17 AM SCREW CUTTER documented in this encounter Ordered Prescriptions Prescription Sig Dispense Quantity Refills Last Filled Start Date End Date SUMAtriptan (IMITREX) 100 mg tabletIndications: Migraine Take 1 tablet (100 mg total) by mouth once as needed for migraine (headache) May repeat one time after 2 hours if needed. 27 tablet 3 03/12/2020 2 documented in this encounter Progress Notes * Les Paez MD - 03/12/2020 11:00 AM CST Images from the original note were not included. 03/12/2020 Patient ID: Michele Richmond is a 39 y.o. male. Chief Complaint New Patient (GN Patient) and Migraine HPI: 39-year-old man with history of migraine without aura presents for neurological evaluation. He is a former patient of [facility]. He was treated a [facility] for migraine without aura. Prior medical records from [facility] have been requested unsuccessfully obtained. Another attempt at retrieving medical records will be performed today. He states he was last seen a [facility] about 14 months ago. He was prescribed sumatriptan 100 mg b.i.d. p.r.n. for abortive migraine control. He states he gets episodic headaches typically 2-5 days a month which the sumatriptan seems to be reliably abort. He describes the headaches as a bifr ontal bitemporal throbbing headache with light noise sensitivity and nausea but no vomiting. It canbe precipitated by changes in sleep or stress. Generally finds prompt relief with taking sumatriptan after about an hour. There was no tolerability issues with medication. He has run out of medication about a month ago and is in need of refill at this time. He is requesting same. Past Medical History: Diagnosis Date ??? Bipolar 1 disorder (CMS/HCC) ??? Depression ??? Migraine ??? OCD (obsessive compulsive disorder) Allergies Allergen Reactions ??? Sulfa (Sulfonamide Antibiotics) Hives and Swelling Current Outpatient Medications: ??? carBAMazepine ER, 600 mg, oral, BID ??? gabapentin, TAKE 1 CAPSULE BY MOUTH EVERY DAY AT BEDTIME ??? sertraline, 100 mg, oral, Daily ??? traZODone, TK 1 T PO QD HS ??? SUMAtriptan, 100 mg, oral, Once PRN Social History Socioeconomic History ??? Marital status: Single Spouse name: None ??? Number of children: None ??? Years of education: None ??? Highest education level: None Occupational History ??? None Social Needs ??? Financial resource strain: None ??? Food insecurity Worry: None Inability: None ??? Transportation needs Medical: None Non-medical: None Tobacco Use ??? Smoking status: Never Smoker ??? Smokeless tobacco: Never Used Substance and Sexual Activity ??? Alcohol use: None ??? Drug use: None ??? Sexual activity: None Lifestyle ??? Physical activity Days per week: None Minutes per session: None ??? Stress: None Relationships ??? Social connections Talks on phone: None Gets together: None Attends jainism service: None Active member of club or organization: None Attends meetings of clubs or organizations: None Relationship status: None ??? Intimate partner violence Fear of current or ex partner: None Emotionally abused: None Physically abused: None Forced sexual activity: None Other Topics Concern ??? None Social History Narrative ??? None Family History Problem Relation Age of Onset ??? Dementia Mother ??? Neuropathy Father ??? No Known Problems Brother Review of Systems Constitutional: Negative for activity change, chills, fever and unexpected weight change. HENT: Negative for hearing loss, sore throat and tinnitus. Denies Tinnitus Eyes: Negative for pain. Respiratory: Negative for cough, shortness of breath and wheezing. Cardiovascular: Negative for chest pain, palpitations and leg swelling. Denies Poor Circulation Gastrointestinal: Negative for abdominal pain, constipation, diarrhea, nausea and vomiting. Endocrine: Negative for cold intolerance, heat intolerance and polyuria. Genitourinary: Negative for difficulty urinating, dysuria, frequency and urgency. Denies Incontinence Musculoskeletal: Negative for arthralgias, back pain, myalgias, neck pain and neck stiffness. Skin: Negative for color change and rash. Denies Birthmarks Deniees Tattoos Allergic/Immunologic: Negative for environmental allergies and food allergies. Neurological: Positive for headaches. Negative for dizziness, tremors, seizures, syncope, facial asymmetry, speech difficulty, weakness, light-headedness and numbness. Hematological: Does not bruise/bleed easily. Psychiatric/Behavioral: Denies Visual Hallucinations Denies Auditory Hallucinations Denies Motor Tics BP 120/80 (BP Location: Right arm, Patient Position: Sitting) Pulse 72 Temp 37.2 ??C (98.9 ??F) Ht 182.9 cm (6') Wt 96.1 kg (211 lb 12.8 oz) BMI 28.73 kg/m?? General Examination: Patient appears of stated age in no apparent distress Cardiac Examination: Regular rate and rhythm without murmur Neck Examination: No audible carotid bruits; Full ROM, nontender Lumbar Examination: Full ROM, nontender Extremity Examination: Posterior Tibial and Dorsalis Pedis pulses 2+, symmetric Neurologic Exam Mental Status Oriented to person. Oriented to place. Oriented to time. Oriented to year, month, date and day. Attention: normal. Concentration: normal. Speech: speech is normal Level of consciousness: alert Knowledge: consistent with education. Able to perform simple calculations. Able to read. Able to repeat. Able to write. Normal comprehension. Cranial Nerves CN II Visual luna full to confrontation. Visual acuity: normal Right visual field deficit: none Left visual field deficit: none CN III, IV, Pupils are equal, round, and reactive to light. Extraocular motions are normal. Right pupil: Shape: regular. Reactivity: brisk. Consensual response: intact. Left pupil: Shape: regular. Reactivity: brisk. Consensual response: intact. CN V Facial sensation intact. CN VII Facial expression full, symmetric. CN VIII CN VIII normal. CN IX, X CN IX normal. CN X normal. CN XI CN XI normal. CN XII CN XII normal. Funduscopic Examination Normal Bilaterally Motor Exam Muscle bulk: normal Overall muscle tone: normal Right arm tone: normal Left arm tone: normal Right leg tone: normal Left leg tone: normal Strength Right neck flexion: 5/5 Left neck flexion: 5/5 Right neck extension: 5/5 Left neck extension: 5/5 Right deltoid: 5/5 Left deltoid: 5/5 Right biceps: 5/5 Left biceps: 5/5 Right triceps: 5/5 Left triceps: 5/5 Right wrist flexion: 5/5 Left wrist flexion: 5/5 Right wrist extension: 5/5 Left wrist extension: 5/5 Right interossei: 5/5 Left interossei: 5/5 Right iliopsoas: 5/5 Left iliopsoas: 5/5 Right quadriceps: 5/5 Left quadriceps: 5/5 Right hamstrin/5 Left hamstrin/5 Right glutei: 5/5 Left glutei: 5/5 Right anterior tibial: 5/5 Left anterior tibial: 5/5 Right posterior tibial: 5/5 Left posterior tibial: 5/5 Right peroneal: 5/5 Left peroneal: 5/5 Right gastroc: 5/5 Left gastroc: 5/5 Sensory Exam Light touch normal. Vibration normal. Proprioception normal. Pinprick normal. Gait, Coordination, and Reflexes Gait Gait: normal Coordination Romberg: negative Finger to nose coordination: normal Heel to soriano coordination: normal Tandem walking coordination: normal Tremor Resting tremor: absent Intention tremor: absent Action tremor: absent Reflexes Right brachioradialis: 2+ Left brachioradialis: 2+ Right biceps: 2+ Left biceps: 2+ Right triceps: 2+ Left triceps: 2+ Right patellar: 2+ Left patellar: 2+ Right achilles: 2+ Left achilles: 2+ Right plantar: normal Left plantar: normal Assessment/Plan Diagnoses and all orders for this visit: Migraine without aura, not intractable, without status migrainosus (Primary) Assessment & Plan: Patient is a former patient of [facility] being treated for migraine without aura with abortive treatment of sumatriptan 100 mg b.i.d. p.r.n.. Prior medical records from [facility] beenrequested unsuccessfully obtained. They will be again requested [...] back in the office in 1 year. Orders: - SUMAtriptan (IMITREX) 100 mg tablet; Take 1 tablet (100 mg total) by mouth once as needed for migraine (headache) May repeat one time after 2 hours if needed. I spent a total of 26 minutes during today's encounter. Les Paez MD W CUTTER documented in this encounter Miscellaneous Notes * Assessment & Plan Note - Les Paez MD - 03/12/2020 12:10 PM SCREW CUTTER Associated Problem(s): Migraine without aura, not intractable, without status migrainosus Patient is a former patient of [facility] being treated for migraine without aura with abortive treatment of sumatriptan 100 mg b.i.d. p.r.n.. Prior medical records from [facility] beenrequested unsuccessfully obtained. They will be again requested [...] back in the office in 1 year. W CUTTER documented in this encounter Plan of Treatment Not on file documented as of this encounter Visit Diagnoses Diagnosis Migraine without aura, not intractable, without status migrainosus- Primary documented in this encounter Discontinued Medications Medication Sig Discontinue Reason Start Date End Da te SUMAtriptan (IMITREX) 100 mg tabletIndications:Migra ine Take 1 tablet (100 mg total) by mouth once as needed for migraine (headache) for up to 18 doses May repeat one time after 2 hours if needed. Reorder 01/25/2020 03/12/2020 documented as of this encounter Historical Medications * This list may reflect changes made after this encounter. traZODone (DESYREL) 100 mg tablet TK 1 T PO QD HS 01/01/2020 sertraline (ZOLOFT) 100 mg tablet Take 100 mg by mouth daily 02/26/2020 gabapentin (NEURONTIN) 300 mg capsule TAKE 1 CAPSULE BY MOUTH EVERY DAY AT BEDTIME 01/13/2020 carBAMazepine ER (CARBATROL) 300 mg 12 hr capsule Take 600 mg by mouth 2 (two) times a day 01/17/2020 added in this encounter Care Teams Assembly Supervisor Relationship Specialty Start Date End Date Kit Miles MD [address] [place] [address] PCP - General Internal Medicine 01/24/20 documented as of this encounter
--- OUTSIDE RECORDS SUMMARY | 2024-02-01 01:37 | XMS_ITS | Referral Summary ---
Author Organization [facility] Address [address] [place] [address] Care Team Providers Care Brooch Maker Novelty Name Role Phone Kit Miles MD Primary Care Provider [phone]- [phone] Allergies Active Allergy Reactions Criticality Noted Date [...] 03/12/2020 Assessment & Plan (03/12/2020 12:11 PM AFTERSCHOOL): Patient is a former patient of [facility] being treated for migraine without aura with abortive treatment of sumatriptan 100 mg b.i.d. p.r.n.. Prior medical records from [facility] been requested unsuccessfully obtained. They will [...] back in the office in 1 year. Social History Tobacco Use Types Packs/Day Years Used Date Smoking Tobacco: Never Smokeless Tobacco: Never Personal Safety Answer Date Recorded Getting School Help Needed Not on file 05/01 Sex and Gender Information Value Date Recorded Sex Assigned at Not on file Legal Sex Male 5:56 PM AFTERSCHOOL Gender Identity Not on file Sexual Orientation Not on file Last Filed Vital Signs Vital Sign Reading Time Taken Comments Blood Pressure 120/80 03/12/2020 11:17 AM AFTERSCHOOL Pulse 72 03/12/2020 11:17 AM AFTERSCHOOL Temperature 37.2 ??C (98.9 ??F) 03/12/2020 1 1:17 AM AFTERSCHOOL Respiratory Rate - - Oxygen Saturation - - Inhaled Oxygen Concentration - - Weight 96.1 kg (211 lb 12.8 oz) 021 11:17 AM AFTERSCHOOL Height 182.9 cm (6') 03/12/2020 11:17 AM AFTERSCHOOL Body Mass Index 28.73 03/12/2020 11:17 AM AFTERSCHOOL Plan of Treatment Not on file Insurance [facility] Care Teams Brooch Maker Novelty Relationship Specialty Start Date End Date Kit Miles MD [address] [facility] [address] [place] [address] PCP - General Internal Medicine 01/24/20
== END 2024-01-28 15:24 | disposition home or self-care (01) ==
PROVIDERS: PCP Nurse Practitioner; Visit Provider Nurse Practitioner
DX: R06.02 Shortness of breath (principal)
CPT/HCPCS: 71046

== ENCOUNTER 2024-06-05 15:14 | Emergency (ER) | payer OTHER, SELFPAY ==
--- NOTE | ~2024-06-05 | XR_ITS ---
XR chest 2V Ordering provider: Edvin Donahue History: 43 years Male with . cough/sob x 2 days . Comparison: None. FINDINGS: MEDIASTINUM: The cardiac silhouette is not enlarged. LUNGS: No infiltrates, effusions or pneumothorax. OTHER: No free air under the diaphragm. IMPRESSION: No acute cardiopulmonary pathology. Reviewed, dictated and finalized at location A.
--- NOTE | 2024-06-05 15:18 | ED.URI ---
HPI - URI/Sore Throat General Chief Complaint: Upper Respiratory Infection Stated Complaint: Cough / SOB Time Seen by Provider: 06/05/24 15:17 Source: patient Mode of arrival: ambulatory Limitations: no limitations History of Present Illness HPI Narrative: Mani is a 43-year-old male patient presenting to the clinic today with complaints of cough and shortness of breath x2 days. He reports cough is non-productive with some green phlegm. He denies any fever. States when he coughs it feels as though it is burning in his chest. Related Data Home Medications ?Medication ?Instructions ?Recorded ?Confirmed ?Last Taken ?Type carbamazepine 300 mg mg PO 04/14/23 04/14/23 Unknown History capsule,extended release [id number] dextroamphetamine-amphetamine 10 04/14/23 Unknown History mg tablet trazodone 100 mg tablet mg 04/14/23 Unknown History dextroamphetamine-amphetamine ER PO 06/05/24 Unknown History 15 mg 24hr capsule,extend release dextroamphetamine-amphetamine ER PO 06/05/24 Unknown History 30 mg 24hr capsule,extend release Allergies Allergy/AdvReac Type Severity Reaction Status Date / Time Sulfa (Sulfonamide Allergy Intermediate Hives, Verified 06/05/24 15:21 Antibiotics) joint swelling Review of Systems Review of Systems: Pertinent positives per HPI. Patient denies any fever, chills, rash, headache, visual changes, dizziness, chest pain, palpitations, nausea, vomiting, diarrhea, constipation, abdominal pain, or any urinary issues. PMFSH Past Medical History Medical History BMI 25.0-25.9,adult Pure hypercholesterolemia Pilomatrixoma of left upper extremity Low testosterone Insomnia, unspecified Gastro-esophageal reflux disease without esophagitis Depression Bipolar 1 disorder Anxiety disorder, unspecified Hyperlipidemia Surgical History Surgical History H/O hand surgery Family History Family History Father Neuropathy Mother , Dementia No problems noted. Sibling No problems noted. Other Family history of Parkinson's disease Family history of malignant neoplasm Social History Social History Smoking status: Never smoker Second hand tobacco smoke exposure: Yes Alcohol intake: current Drinks per week: 12 Alcohol use details: occasional-sober 1 year. Substance use: former Substance use type: marijuana Other substance usage details: Quit/cut down for Adderall. Do You Feel Safe in your Home?: Yes Lack of Transportation: No Lack of Food: Never True Current Housing: I Have Housing Concerned About Future Housing: No Difficulty Paying Gas/Electric Bills: No Difficulty Paying for Meds: No Currently Unemployed: No Education: High School Diploma/GED Difficulty w/ Childcare or Family Care: No Living arrangements: with family Occupation/Education: occupation Additional occupation/education comments: [employer]. Gender identity (if verbalized by the patient): Male Spiritual care concerns: No Comments At the time of my signature, I reviewed and agree with the nursing past medical, surgical, social, and family history. There is no relevant family history pertinent to the patient complaint. Exam Narrative: General: Well-developed, well nourished, in no apparent distress Head: Normocephalic, atraumatic Eyes: Pupils equally round and reactive to light bilaterally, EOM intact, sclera and conjunctive clear, no discharge, lids normal Ears: TMs intact and congested, ear canals clear, no drainage, grossly hearing normal. Nose: Nares patent, clear nasal discharge, mild inflammation, no sinus tenderness. Mouth: Oral pharynx without lesions or masses, good dentition, MMM. postnasal drip Neck: Supple, trachea midline, no enlargement of anterior or posterior cervical nodes, no thyroid masses or goiter palpable. Cardio: Regular rate and rhythm, s1 and s2 normal, no murmur appreciated. Resp: Lung sounds diminished in the bases otherwise clear, no rhonchi, rales, wheezing or rubs Course Course Emergency Course: Portions of this record may have been created with voice recognition software. Level of Care: Express Care Visit Vital Signs Vital signs: Vital Signs Temperature 36.6 C 06/05/24 15:22 Pulse Rate 72 06/05/24 15:22 Respiratory Rate 18 06/05/24 15:22 Blood Pressure 129/88 06/05/24 15:22 Pulse Oximetry 100 06/05/24 15:22 Oxygen Delivery Room Air 06/05/24 15:22 Temperature 36.6 C 06/05/24 15:22 Pulse Rate 72 06/05/24 15:22 Respiratory Rate 18 06/05/24 15:22 Blood Pressure 129/88 06/05/24 15:22 Pulse Oximetry 100 06/05/24 15:22 Oxygen Delivery Room Air 06/05/24 15:22 Vital signs reviewed MDM - URI/Sore Throat MDM Narrative Medical decision making narrative: At the time of visit patient is resting comfortably on the exam table. Patient appears to be nontoxic. Labs: COVID and influenza testing was negative in the clinic today. Diagnostics: Chest x-rays negative for any acute cardiopulmonary process. Plan: I suspect patient has bronchitis. Prescription for Tessalon Perles, albuterol inhaler, and prednisone was sent to the pharmacy. Supportive measures were discussed with the patient and they voiced understanding discharge instructions and agrees to treatment plan. Return precautions reviewed Differential Diagnosis Differential diagnosis: Likely upper respiratory infection, otitis media, sinusitis, viral infection, bronchitis, influenza, pharyngitis and other (COVID) Lab Data Labs: Lab Results 06/05/24 Range/Units 15:49 POC Influenza A Ag Pending POC Influenza B Ag Pending POC SARS CoV-2 Ag Pending Imaging Data Radiologist's impression: ITS Impressions Chest X-Ray 06/05/24 15:39 IMPRESSION: No acute cardiopulmonary pathology. Discharge Plan Discharge Clinical Impression: Bronchitis Patient Disposition: Home Condition: Stable Instructions: Antibiotic Form, Acute Bronchitis (ED) Additional Instructions: Take prescription medications only as prescribed Prednisone, albuterol inhaler, and Tessalon Perles Increase fluids and stay well hydrated Tylenol/motrin for pain/fever Flonase and OTC antihistamines as directed Vicks vapor rub to open sinuses Sinus rinses for congestion Cepacol spray, cough drops, throat lozenges, warm tea with honey/lemon, gargle salt water to soothe throat BRAT diet for diarrhea Clear liquids x 24 hours then advance as tolerated for nausea/vomiting Go to the ED if you develop a worsening in your condition- high fever not controlled by Tylenol or Motrin, dehydration, weakness, lethargy, shortness of breath, or chest pain. Follow up with your PCP in 3-5 days if symptoms persist. Patient Language: Icelandic Prescriptions: New prednisone 20 mg tablet 40 mg PO DAILY 5 Days Qty: 10 0RF benzonatate 200 mg capsule 200 mg PO TID 7 Days Qty: 21 0RF albuterol sulfate 90 mcg/actuation HFA aerosol inhaler 2 puff inhalation Q4-6H PRN (Reason: shortness of breath or wheezing) 30 Days Qty: 8.5 0RF No Action dextroamphetamine-amphetamine 30 mg capsule,extended release 24hr PO dextroamphetamine-amphetamine 15 mg capsule,extended release 24hr PO sumatriptan succinate 100 mg tablet See Rx Instructions .ROUTE .COMPLEX Qty: 10 5RF Dose Instruction: TAKE 1 TABLET BY MOUTH AT ONSET, MAY REPEAT DOSAGE AFTER 2 HOURS IF NO RELIEF, MAXIMUM DAILY DOSE IS 2 TABLETS Rx Instructions: TAKE 1 TABLET BY MOUTH AT ONSET, MAY REPEAT DOSAGE AFTER 2 HOURS IF NO RELIEF, MAXIMUM DAILY DOSE IS 2 TABLETS dextroamphetamine-amphetamine 10 mg tablet trazodone 100 mg tablet carbamazepine 300 mg capsule, ER multiphase 12 hr PO Follow-up/Referrals: UNKNOWN,DOCTOR [Non-Staff] - Stand Alone Forms: Work/School Release IP Time of Disposition: 15:47 Quality NIHSS Nursing Documentation ED NIHSS nursing documentation: reviewed/agree
[2024-06-05 15:22] VITALS: BP 129/88; PULSE 72; RESP 18; TEMP 36.6; O2SAT 100
[2024-06-05 15:52] LABS: EDCOVIDSCREEN Negative (Negative); EDINFLUASCREEN Negative (Negative); EDINFLUBSCREEN Negative (Negative)
--- OUTSIDE RECORDS SUMMARY | 2024-06-05 17:12 | XMS_ITS | Patient Health Record ---
Author Organization [facility] [employer] Address [address] [place] [address] Care Team Providers Care Window And Door Installer Name Role Phone Nando Galicia Unavailable [phone] Migration, Provider Unavailable Unavailable Allergies Allergen (clinical drug ingredient) Drug/Non Drug Allergy documented on EMR Reaction Allergy Type Onset Date Status Substance with sulfonamide structure and antibacterial mechanism of action (substance) SULFA (SULFONAMIDE ANTIBIOTICS) (uncoded) Unknown Allergy 04/24/2022 Active Results Component Value Reference Range Notes UDT Reviewed date:05/03/2024 05:48:32 PM Interpretation: Performing Lab: Notes/Report: THC N 0 - 50 ng/ml Cocaine N 0 - 300 ng/ml Amphetamine P 0 - 1000 ng/ml Buprenorphine (BUP) N 0 - 10 ng/ml Secobarbital (Bar) N 0 - 300 ng/ml Oxazepam (BZO) N 0 - 300 ng/ml 0-yaycfqpwcr-2,7-zdimgini-4,3-diphenylpyrrolidine (СЕРГЕЙ P) N 0 - 300 ng/ml Methamphetamine (MET) N 0 - 1000 ng/ml Methylenedioxymethamphetamine (MDMA) N 0 - 500 ng/ml Morphine (MOP 300/[id number]) N 0 - 300 ng/ml Methadone (MTD) N 0 - 300 ng/ml Phencyclidine (PCP) N 0 - 25 ng/ml Nortriptyline (TCA) N 0 - 1000 ng/ml Oxycodone N 0 - 300 ng/ml x N 0 - 300 ng/ml UDT Reviewed date:02/18/2024 12:37:26 PM Interpretation: Performing Lab: Notes/Report: THC NEG 0 - 50 ng/ml Cocaine NEG 0 - 300 ng/ml Amphetamine POS 0 - 1000 ng/ml Buprenorphine (BUP) NEG 0 - 10 ng/ml Secobarbital (Bar) NEG 0 - 300 ng/ml Oxazepam (BZO) NEG 0 - 300 ng/ml 7-zxzuqdpjid-7,7-onnflacb-3,3-diphenylpyrrolidine (СЕРГЕЙ P) NEG 0 - 300 ng/ml Methamphetamine (MET) NEG 0 - 1000 ng/ml Methylenedioxymethamphetamine (MDMA) NEG 0 - 500 ng/ml Morphine (MOP 300/[id number]) NEG 0 - 300 ng/ml Methadone (MTD) NEG 0 - 300 ng/ml Phencyclidine (PCP) NEG 0 - 25 ng/ml Nortriptyline (TCA) NEG 0 - 1000 ng/ml Oxycodone NEG 0 - 300 ng/ml x NEG 0 - 300 ng/ml UDT Reviewed date:11/10/2023 01:47:48 PM Interpretation: Performing Lab: Notes/Report: THC POS 0 - 50 ng/ml Cocaine NEG 0 - 300 ng/ml Amphetamine NEG 0 - 1000 ng/ml Buprenorphine (BUP) NEG 0 - 10 ng/ml Secobarbital (Bar) NEG 0 - 300 ng/ml Oxazepam (BZO) NEG 0 - 300 ng/ml 3-hyyhiyofmi-3,0-mvfqarzn-1,3-diphenylpyrrolidine (СЕРГЕЙ P) NEG 0 - 300 ng/ml Methamphetamine (MET) NEG 0 - 1000 ng/ml Methylenedioxymethamphetamine (MDMA) NEG 0 - 500 ng/ml Morphine (MOP 300/[id number]) NEG 0 - 300 ng/ml Methadone (MTD) NEG 0 - 300 ng/ml Phencyclidine (PCP) NEG 0 - 25 ng/ml Nortriptyline (TCA) NEG 0 - 1000 ng/ml Oxycodone NEG 0 - 300 ng/ml x NEG 0 - 300 ng/ml Reason For Referral No Information Medications Medication SIG (Take, Route, Frequency, Duration) Notes Start Date End Date Status carBAMazepine ER 300 MG 3 capsules Orall y daily for 90 days Active traZODone HCl 100 MG TAKE 1 TO 2 TABLETS BY MOUTH EVERY NIGHT AT BEDTIME for 30 Active Amphetamine-Dextroamphet ER 30 MG 1 capsule every morning Oral Once a day for 30 days 05/03/2024 Active ProAir HFA 108 (90 Base) MCG/ACT Inhalation 11/10/2022 Active OLANZapine 5 MG 1 tablet at bedtime Orally Once a day for 30 days 05/03/2024 Active Amphetamine-Dextroamphetamin e 10 MG 1 tablet Oral once a day for 30 days take in early afternoon 05/03/2024 Active SUMAtriptan Succinate 100 MG Oral 11/10/2022 Active Amphetamine-Dextroamphet ER 15 MG 2 capsules in the morning Orally Once a day for 30 days 04/11/2024 Active Amphetamine-Dextroamphetamin e 10 MG 1 tablet in the morning Oral once a day for 30 days 03/28/2024 Active Immunizations Vaccine Route Administration Date Status [...] Problem Status W/U Status Risk Notes Problem Mixed bipolar I disorder (55079536) Bipolar disorder, current episode mixed, unspecified (F31.60) Active confirmed Problem Generalized anxiety disorder (37374254) Generalized anxiety disorder (F41.1) Active confirmed Problem Attention deficit hyperactivity disorder, combined type (98276162) Attention-deficit hyperactivity disorder, combined type (F90.2) Active confirmed Problem Insomnia (233666912) Other insomnia (G47.09) Active confirmed Vital Signs Heart Rate 75 /min 05/03/2024 Height-cm 182.88 cm 05/03/2024 Blood pressure diastolic 90 mm Hg 05/03/2024 Weight-kg 86.64 kg 05/03/2024 Height 72.00 in 05/03/2024 Blood pressure systolic 155 mm Hg 05/03/2024 Weight 191 lbs 05/03/2024 BMI 25.9 kg/m2 05/03/2024 Encounters Encounter Location Date Provider Diagnosis [facility] [address] [address] 06/25/2023 Provider Migration Attention-deficit hyperactivity disorder, combined type F90.2 [facility] [address] [place] [address] 11/10/2023 Nando Galicia Attention-deficit hyperactivity disorder, combined type F90.2 ; Other insomnia G47.09 ; Generalized anxiety disorder F41.1 and Bipolar disorder, current episode mixed, unspecified F31.60 [facility], [facility] [address] [place] [address] 02/15/2024 Nando Galicia Attention-deficit hyperactivity disorder, combined type F90.2 ; Other insomnia G47.09 ; Generalized anxiety disorder F41.1 and Bipolar disorder, current episode mixed, unspecified F31.60 [facility], [facility] [address] [place] [address] 03/14/2024 Nando Galicia Attention-deficit hyperactivity disorder, combined type F90.2 ; Other insomnia G47.09 ; Generalized anxiety disorder F41.1 and Bipolar disorder, current episode mixed, unspecified F31.60 [facility], [facility] [address] [place] [address] 05/03/2024 Nando Galicia Encounter for screening for depression Z13.31 ; Attention-deficit hyperactivity disorder, combined type F90.2 ; Other insomnia G47.09 ; Generalized anxiety disorder F41.1 and Bipolar disorder, current episode mixed, unspecified F31.60 [facility], [facility] [address] [place] [address] 06/09/2023 Provider Migration [facility], [facility] [address] [place] [address] 06/23/2023 Provider [facility], [facility] [address] [place] [address] 06/25/2023 Provider Migration [facility], [facility] [address] [place] [address] 07/03/2023 Provider Migration [facility], [facility] [address] [place] [address] 07/04/2023 Provider [facility], [facility] [address] [place] [address] 09/08/2023 Nando Galicia Other insomnia G47.0 9 [facility], [facility] [address] [place] [address] 09/08/2023 Nandoarin Bhardwaja Generalized anxiety disorder F41.1 [facility], [facility] [address] [place] [address] 09/08/2023 Nando Galicia Bipolar disorder, current episode depressed, mild or moderate severity, unspecified F31.30 [facility], [facility] [address] [place] [address] 09/14/2023 Nando Bhardwaja [facility], [facility] [address] [place] [address] 04/06/2024 Nando Bhardwaja [facility], [facility] [address] [place] [address] 04/11/2024 Nando Cliffordoza [facility], [facility] [address] [place] [address] 08/25/2023 Nando Galicia Attention-deficit hyperactivity disorder, combined type F90.2 [facility], [facility] [address] [place] [address] 08/25/2023 Nando Galicia Attention-deficit hyperactivity disorder, combined type F90.2 [facility], [facility] [address] [place] [address] 08/25/2023 Nando Galicia [facility], [facility] [address] [place] [address] 10/27/2023 Nando Galicia [facility], [facility] [address] [place] [address] 12/27/2023 Nando Galicia Attention-deficit hyperactivity disorder, combined type F90.2 [facility], [facility] [address] [place] [address] 02/24/2024 Nando Galicia [facility], [facility] [address] [place] [address] 02/29/2024 Nando Galicia [facility], [facility] [address] [place] [address] 03/01/2024 Nando Galicia Attention-deficit hyperactivity disorder, combined type F90.2 [facility] [address] [place] [address] 03/10/2024 Nandoarin Cliffordoza [facility], [facility] [address] [facility] [address] [place] [address] 03/10/2024 Nando Galicia [facility], [facility] [address] [facility] [address] [place] [address] 03/20/2024 Nando Galicia [facility], [facility] [address] [facility] [address] [place] [address] 03/24/2024 Nando Galicia Attention-deficit hyperactivity disorder, combined type F90.2 [facility] [address] [facility] [address] [place] [address] 03/24/2024 Nando Galicia [facility], [facility] [address] [facility] [address] [place] [address] 03/27/2024 Nando Galicia [facility], [place] [address] [address] 03/27/2024 Nandoarin Cliffordoza [facility], [place] [address] [facility] [address] [place] [address] 04/11/2024 Nandoarin Cliffordoza Attention-deficit hyperactivity disorder, combined type F90.2 [place] [address] [address] 04/11/2024 Nando Galicia Assessments Encounter Date Diagnosis (ICD Code) Assessment Notes Treatment Notes Treatment Clinical Notes Section Notes 09/08/2023 Other insomnia (ICD-10 - G47.09) 09/08/2023 Generalized anxiety disorder (ICD-10 - F41.1) 11/10/2023 Attention-defic it hyperactivity disorder, combined type (ICD-10 - F90.2) [...] the dosage or medication if necessary. 12/27/2023 Attention-defic it hyperactivity disorder, combined type (ICD-10 - F90.2) 02/15/2024 Attention-defic it hyperactivity disorder, combined type (ICD-10 - F90.2) 1. Insomnia: - Patient reports difficulty falling asleep and staying asleep, with trazodone providing only partial relief. Plan: - Discontinue trazodone. - Prescribe Lunesta for sleep, instructing the patient to take it as needed for sleep. - Educate the patient on proper sleep hygiene and stress management techniques. 2. ADHD: - Patient reports racing thoughts and difficulty concentrating, even with Adderall use. Plan: - Discontinue Adderall. - Trial Vyvanse 70 mg daily for 10 days to assess its effectiveness in managing ADHD symptoms. - Schedule a follow-up appointment to evaluate the patient's response to Vyvanse. 3. Anxiety: - Patient experiences racing thoughts, restlessness, and difficulty relaxing when not engaged in activities. Plan: - Continue carbamazepine 300 mg three times a day. - Encourage the patient to engage in stress-reducing activities such as exercise, meditation, or therapy. - Monitor the patient's response to Vyvanse, as it may help alleviate some anxiety symptoms. 4. Substance use: - Patient reports past substance use but has been abstinent for months. Plan: - Perform a drug test to confirm abstinence. - Encourage the patient to continue avoiding substances and seek support if needed. 5. Family and social stressors: - Patient reports stress related to family life and work responsibilitie s. Plan: - Encourage the patient to seek therapy or counseling to address family and work-related stress. - Provide resources for local support groups or therapists. 6. Follow-up: - Schedule a follow-up appointment in 2 weeks to assess the patient's response to Vyvanse and Lunesta, as well as to monitor progress in managing anxiety and insomnia. 03/01/2024 Attention-defic it hyperactivity disorder, combined type (ICD-10 - F90.2) 03/14/2024 Attention-defic it hyperactivity disorder, combined type (ICD-10 - F90.2) 03/24/2024 Attention-defic it hyperactivity disorder, combined type (ICD-10 - F90.2) 04/11/2024 Attention-defic it hyperactivity disorder, combined type (ICD-10 - F90.2) 05/03/2024 Encounter for screening for depression (ICD-10 - Z13.31) 06/25/2023 Attention-defic it hyperactivity disorder, combined type (ICD-10 - F90.2) 08/25/2023 Attention-defic it hyperactivity disorder, combined type (ICD-10 - F90.2) 08/25/2023 Attention-defic it hyperactivity disorder, combined type (ICD-10 - F90.2) 09/08/2023 Bipolar disorder, current episode depressed, mild or moderate severity, unspecified (ICD-10 - F31.30) 05/03/2024 Attention-defic it hyperactivity disorder, combined type (ICD-10 - F90.2) 03/14/2024 Other insomnia (ICD-10 - G47.09) 02/15/2024 Other insomnia (ICD-10 - G47.09) 1. Insomnia: - Patient reports difficulty falling asleep and staying asleep, with trazodone providing only partial relief. Plan: - Discontinue trazodone. - Prescribe Lunesta for sleep, instructing the patient to take it as needed for sleep. - Educate the patient on proper sleep hygiene and stress management techniques. 2. ADHD: - Patient reports racing thoughts and difficulty concentrating, even with Adderall use. Plan: - Discontinue Adderall. - Trial Vyvanse 70 mg daily for 10 days to assess its effectiveness in managing ADHD symptoms. - Schedule a follow-up appointment to evaluate the patient's response to Vyvanse. 3. Anxiety: - Patient experiences racing thoughts, restlessness, and difficulty relaxing when not engaged in activities. Plan: - Continue carbamazepine 300 mg three times a day. - Encourage the patient to engage in stress-reducing activities such as exercise, meditation, or therapy. - Monitor the patient's response to Vyvanse, as it may help alleviate some anxiety symptoms. 4. Substance use: - Patient reports past substance use but has been abstinent for months. Plan: - Perform a drug test to confirm abstinence. - Encourage the patient to continue avoiding substances and seek support if needed. 5. Family and social stressors: - Patient reports stress related to family life and work responsibilitie s. Plan: - Encourage the patient to seek therapy or counseling to address family and work-related stress. - Provide resources for local support groups or therapists. 6. Follow-up: - Schedule a follow-up appointment in 2 weeks to assess the patient's response to Vyvanse and Lunesta, as well as to monitor progress in managing anxiety and insomnia. 11/10/2023 Generalized anxiety disorder (ICD-10 - F41.1) [...] adjusting the dosage or medication if necessary. 02/15/2024 Generalized anxiety disorder (ICD-10 - F41.1) 1. Insomnia: - Patient reports difficulty falling asleep and staying asleep, with trazodone providing only partial relief. Plan: - Discontinue trazodone. - Prescribe Lunesta for sleep, instructing the patient to take it as needed for sleep. - Educate the patient on proper sleep hygiene and stress management techniques. 2. ADHD: - Patient reports racing thoughts and difficulty concentrating, even with Adderall use. Plan: - Discontinue Adderall. - Trial Vyvanse 70 mg daily for 10 days to assess its effectiveness in managing ADHD symptoms. - Schedule a follow-up appointment to evaluate the patient's response to Vyvanse. 3. Anxiety: - Patient experiences racing thoughts, restlessness, and difficulty relaxing when not engaged in activities. Plan: - Continue carbamazepine 300 mg three times a day. - Encourage the patient to engage in stress-reducing activities such as exercise, meditation, or therapy. - Monitor the patient's response to Vyvanse, as it may help alleviate some anxiety symptoms. 4. Substance use: - Patient reports past substance use but has been abstinent for months. Plan: - Perform a drug test to confirm abstinence. - Encourage the patient to continue avoiding substances and seek support if needed. 5. Family and social stressors: - Patient reports stress related to family life and work responsibilitie s. Plan: - Encourage the patient to seek therapy or counseling to address family and work-related stress. - Provide resources for local support groups or therapists. 6. Follow-up: - Schedule a follow-up appointment in 2 weeks to assess the patient's response to Vyvanse and Lunesta, as well as to monitor progress in managing anxiety and insomnia. 11/10/2023 Bipolar disorder, current episode mixed, unspecified [...] adjusting the dosage or medication if necessary. 05/03/2024 Other insomnia (ICD-10 - G47.09) 03/14/2024 Generalized anxiety disorder (ICD-10 - F41.1) 05/03/2024 Generalized anxiety disorder (ICD-10 - F41.1) 02/15/2024 Bipolar disorder, current episode mixed, unspecified (ICD-10 - F31.60) 1. Insomnia: - Patient reports difficulty falling asleep and staying asleep, with trazodone providing only partial relief. Plan: - Discontinue trazodone. - Prescribe Lunesta for sleep, instructing the patient to take it as needed for sleep. - Educate the patient on proper sleep hygiene and stress management techniques. 2. ADHD: - Patient reports racing thoughts and difficulty concentrating, even with Adderall use. Plan: - Discontinue Adderall. - Trial Vyvanse 70 mg daily for 10 days to assess its effectiveness in managing ADHD symptoms. - Schedule a follow-up appointment to evaluate the patient's response to Vyvanse. 3. Anxiety: - Patient experiences racing thoughts, restlessness, and difficulty relaxing when not engaged in activities. Plan: - Continue carbamazepine 300 mg three times a day. - Encourage the patient to engage in stress-reducing activities such as exercise, meditation, or therapy. - Monitor the patient's response to Vyvanse, as it may help alleviate some anxiety symptoms. 4. Substance use: - Patient reports past substance use but has been abstinent for months. Plan: - Perform a drug test to confirm abstinence. - Encourage the patient to continue avoiding substances and seek support if needed. 5. Family and social stressors: - Patient reports stress related to family life and work responsibilitie s. Plan: - Encourage the patient to seek therapy or counseling to address family and work-related stress. - Provide resources for local support groups or therapists. 6. Follow-up: - Schedule a follow-up appointment in 2 weeks to assess the patient's response to Vyvanse and Lunesta, as well as to monitor progress in managing anxiety and insomnia. 03/14/2024 Bipolar disorder, current episode mixed, unspecified (ICD-10 - F31.60) 05/03/2024 Bipolar disorder, current episode mixed, unspecified (ICD-10 - F31.60) 03/14/2024 Other 1. Adverse reaction to Vyvanse: - Patient reported significant discomfort, agitation, and cognitive impairment after switching to Vyvanse. - Experienced lip chewing, restlessness, insomnia, and vivid dreams. - Unable to work and had difficulty with daily activities. Plan: - Discontinue Vyvanse immediately. - Monitor for any residual side effects and provide supportive care as needed. 2. Attention Deficit Hyperactivity Disorder (ADHD): - Previously on Adderall 20 mg in the morning and 10 mg in the afternoon, which provided partial relief of symptoms. Plan: - Restart Adderall XR 30 mg in the morning and Adderall IR 10 mg in the afternoon. - Schedule a follow-up appointment in one month to assess the effectiveness and tolerability of the new medication regimen. 3. Insomnia: - Patient reported difficulty sleeping and has previously used trazodone for sleep with success. Plan: - Restart trazodone for sleep as needed. - Encourage the patient to practice good sleep hygiene and maintain a consistent sleep schedule. 4. Anxiety: - Patient experienced increased anxiety related to insurance issues and his daughter's back surgery. Plan: - Encourage the patient to engage in stress-reducing activities, such as exercise (e.g., soccer) and social support. - Monitor anxiety levels during follow-up appointments and consider additional interventions if necessary. 05/03/2024 Other Kianna Richmond presents with ongoing anxiety, sleep disturbances, and difficulty relaxing, reporting some benefit from Adderall but continued racing thoughts and inability to shut off his brain. Anxiety with racing thoughts and sleep disturbances Assessment: Patient reports persistent anxiety symptoms, particularly racing thoughts and inability to relax. He experiences difficulty falling asleep due to an overactive mind, waking up early with anxious ruminations about tasks to be completed. The patient has been using cannabis (gummies, tinctures, and vapes) at night to help with sleep, as well as experimenting with microdosing mushrooms. Previous trials of Vyvanse and possibly Lunesta were reported as ineffective, with significant functional impairment. Trazodone has provided some relief for sleep maintenance, but the patient still struggles with sleep onset. Adderall helps with task completion but does not alleviate the underlying anxiety. The patient reports an inability to engage in previously enjoyable activities such as watching TV or reading books due to restlessness. Plan: - Start olanzapine 5 mg PO at bedtime for anxiety and sleep - Continue trazodone at bedtime (current dose not specified) - Continue carbamazepine at current dose (not specified) - Continue Adderall (current dose not specified) - Advised patient about the potential benefits of olanzapine for anxiety and sleep, including its classification as an atypical antipsychotic - Follow up in one month Attention Deficit Hyperactivity Disorder (ADHD) Assessment: Patient reports benefit from Adderall in task completion and productivity. However, he notes difficulty initiating tasks when not immediately necessary, suggesting ongoing executive function challenges. The patient's description of constant mental activity and inability to relax is consistent with ADHD symptoms. Plan: - Continue Adderall 21.5 mg (frequency not specified) - Refill Adderall prescription (10 mg tablets also mentioned, but usage unclear) Substance use Assessment: Patient reports using cannabis (gummies, tinctures, and vapes) at night to aid with sleep. He also mentions experimenting with microdosing mushrooms due to inability to shut off his brain. The patient acknowledges always being honest about his substance use. Plan: - No specific interventions discussed regarding substance use the note is transcribed using speech recognition software. It is a reflection of a visit with the patient. It might have some inaccuracy, including medication names and transcribing errors, though efforts have been made to correct them. 03/27/2024 Other Electronic Prior Authorization was requested for Amphetamine-Dex troamphet ER 30 MG Capsule Extended Release 24 Hour. Provider can order medication once approval received. Electronic Prior Authorization was requested for Amphetamine-Dex troamphetamine 10 MG Tablet. Provider can order medication once approval received. Plan Of Treatment Next Appt Details Provider Name:Nando alvarado, 06/21/2024 04:30:00 PM, [address], [facility] [address], [place], [address], Insurance Providers Payer Name Payer Address Payer Phone Subscriber Number Group Number Insured Name Patient Relationship to Insured Coverage Start Date Coverage End Date [facility] [address] [address] [place] [address] [id number] SHAKIANNA SCHMITZ Self - patient is the insured Medical [...]
--- OUTSIDE RECORDS SUMMARY | 2024-06-05 17:12 | XMS_ITS | Clinical Summary ---
Author Organization [facility] Address [address] [place] [address] Care Team Providers Care Rfid Systems Architect Name Role Phone Kit Miles MD Primary Care Provider [phone]- [phone] Allergies Active Allergy Reactions Criticality Noted Date [...] 03/12/2020 Assessment & Plan (03/12/2020 12:11 PM POLL CLERK): Patient is a former patient of [facility] being treated for migraine without aura with abortive treatment of sumatriptan 100 mg b.i.d. p.r.n.. Prior medical records from [facility] been requested unsuccessfully obtained. They will [...] on file Legal Sex Male 5:56 PM POLL CLERK Gender Identity Not on file Sexual Orientation Not on file Obstetrics History Last Filed Vital Signs Vital Sign Reading Time Taken Comments Blood Pressure 120/80 03/12/2020 11:17 AM POLL CLERK Pulse 72 03/12/2020 11:17 AM POLL CLERK Temperature 37.2 C (98.9 F) 03/12/2020 11:17 AM POLL CLERK Respiratory Rate - - Oxygen Saturation - - Inhaled Oxygen Concentration - - Weight 96.1 kg (211 lb 12.8 oz) 021 11:17 AM POLL CLERK Height 182.9 cm (6') 03/12/2020 11:17 AM POLL CLERK Body Mass Index 28.73 03/12/2020 11:17 AM POLL CLERK Plan of Treatment Not on file Insurance [facility] Care Teams Rfid Systems Architect Relationship Specialty Start Date End Date Kit Miles MD [address] [facility] [address] [place] [address] PCP - General Internal Medicine 01/24/20
--- OUTSIDE RECORDS SUMMARY | 2024-06-05 17:12 | XMS_ITS | Clinical Summary ---
Author Organization [facility] Address [address] [place] [id number] Care Team Providers Care [employer] Name Role Phone Kit Miles MD Primary Care Provider [phone] Allergies Active Allergy Reactions Criticality Noted Date [...] 67 05/13/2022 7:54 PM CDT Temperature 36.4 C (97.6 F) 05/13/2022 7:54 PM CDT Respiratory Rate 20 05/13/2022 7:54 PM CDT [...] 19+ 3-dose series) 1997 COVID-19 Vaccine (4 2023-2 5 season) 2023 01/01/2021, 04/23/2020, 03/26/2020 HPV Vaccines Aged Out No longer eligi ble based on patient's age to complete this topic Meningococcal B Vaccine Aged Out No l onger eligible based on patient's age to complete this topic Meningococcal Vaccine Aged Out No theresa yoselyn eligible based on patient's age to complete this topic Pneumococcal Vaccine: Pediatrics (0 to 5 Years) and At-Risk Patients (6 to 49 Years) Aged Out No longer eligible b ased on patient's age to complete this topic RSV Immunizations Under 20 Months Aged Out No longer eligible b ased on patient's age to complete this topic [place] [place] [address] [facility] Care Teams [employer] Relationship Specialty Start Date End Date Kit Miles MD [address] [facility] [place] [address] PCP - General INTERNAL MEDICINE 05/13/22
--- OUTSIDE RECORDS SUMMARY | 2024-06-05 17:12 | XMS_ITS | Referral Summary ---
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 p.r.n.. Prior medical records from [facility] been requested unsuccessfully obtained. They will [...] on file Legal Sex Male 5:56 PM AIRLINE MECHANIC Gender Identity Not on file Sexual Orientation Not on file Last Filed Vital Signs Vital Sign Reading Time Taken Comments Blood Pressure 120/80 03/12/2020 11:17 AM AIRLINE MECHANIC Pulse 72 03/12/2020 11:17 AM AIRLINE MECHANIC Temperature 37.2 C (98.9 F) 03/12/2020 11:17 AM AIRLINE MECHANIC Respiratory Rate - - Oxygen Saturation - - Inhaled Oxygen Concentration - - Weight 96.1 kg (211 lb 12.8 oz) 021 11:17 AM AIRLINE MECHANIC Height 182.9 cm (6') 03/12/2020 11:17 AM AIRLINE MECHANIC Body Mass Index 28.73 03/12/2020 11:17 AM AIRLINE MECHANIC Plan of Treatment Not on file Insurance [facility] Care Teams Programming Coordinator Relationship Specialty Start Date End Date Kit Miles MD [address] [facility] [address] [place] [address] PCP - General Internal Medicine 01/24/20
--- OUTSIDE RECORDS SUMMARY | 2024-06-05 17:12 | XMS_ITS | Clinical Summary ---
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 Gender Identity Not on file Sexual Orientation Not on file Plan of Treatment Health Maintenance Due Date Last Done Comments Hepatitis C Virus (HCV) Screening 1980 TdaP Immunization 1980 Hepatitis B Immunization (1 of 3 - 19+ 3-dose series) 1997 Colonoscopy 06/19/2023 Colorectal Cancer Screening 06/19/2023 Influenza Immunization (#1) 2023 SARS-COV-2 Immunization ( season) 2023 Respiratory Syncytial Virus (RSV) Immunization (Adult) (1 - 1-dose 75+ series) 2053 Meningococcal Immunization (ACWY) Aged Out No longer eligible based on patient's age to complete this topic Pneumococcal Immunization Combined Aged Out No longer eligible based on patient's age to complete this topic Rotavirus Immunization Aged Out No lo nger eligible based on patient's age to complete this topic
== END 2024-06-05 15:53 | disposition home or self-care (01) ==
PROVIDERS: Nurse Practitioner Family; Emergency Provider Nurse Practitioner
DX: J40 Bronchitis, not specified as acute or chronic (principal); Z20.822 Contact with and (suspected) exposure to COVID-19; E78.00 Pure hypercholesterolemia, unspecified; K21.9 Gastro-esophageal reflux disease without esophagitis
CPT/HCPCS: 71046; 87426; 87804; 99213; G0463